=== PATIENT | male | born 1955 | race African-American/Black ===

== ENCOUNTER 2017-05-29 05:08 | Inpatient (IN) | payer OTHER, MEDICAID ==
[2017-05-29] MEDS: NITROGLYCERIN (SL) 0.4 MG TAB SL ×2 (05:20→22:12)
[2017-05-29] MEDS: FUROSEMIDE 40 MG INJ IV ×2 (05:20→18:30)
[2017-05-29] MEDS: ENALAPRILAT 1.25 MG INJ IV (05:20)
[2017-05-29] MEDS: ASPIRIN 81 MG TAB PO ×2 (05:20→10:39)
[2017-05-29 06:05] LABS: AADO2 Arterial 126.9 mmHg (7.0-24.0); Allen Test ACCEPTAB; Arterial Base Excess 1.7 mmol/L (-3.0-3); Arterial Blood Gas Oxygen Sat 99.4 mmHG (95.0-98.0); Arterial COHb 2.3 % (0.0-3.0); Arterial Fraction of Oxyhgb 96.8 % (93.0-99.0); Arterial HCO3 27.9 mmol/L (22.0-26.0); Arterial MetHb 0.3 % (0.0-1.5); Arterial Total Hemglobin 10.9 g/dl (12.0-18.0); Arterial pCO2 51.5 mmhg (35-45); Blood Gas IEPAP 15/5; MODE MASK - BIPAP; Site Right Radial
[2017-05-29 06:18] LABS: ADD MAN DIFF? NO
[2017-05-29 06:28] LABS: INR 1.19; PROTIME 15.3 Sec (11.9-14.9); PT RATIO 1.2
[2017-05-29 06:35] LABS: WHITE BLOOD COUNT 7.9 10^3/ul (4.8-10.8)
[2017-05-29 06:35] LABS: BASOPHILS % 0.4 % (0.0-2.0); EOSINOPHILS # 0.2 10^3/ul (0.0-0.5); EOSINOPHILS % 2.3 % (0.0-7.0); HEMATOCRIT 34.7 % (42.0-52.0); HEMOGLOBIN 10.8 g/dl (14.0-18.0); LYMPHOCYTES # 1.7 10^3/ul (0.8-2.9); LYMPHOCYTES % 21.1 % (15.0-51.0); MEAN CORPUSCULAR HEMOGLOBIN 28.8 pg (29.0-33.0); MEAN CORPUSCULAR HGB CONC 31.1 g/dl (32.0-37.0); MEAN CORPUSCULAR VOLUME 92.5 fl (82.0-101.0); MONOCYTE # 0.7 10^3/ul (0.3-0.9); MONOCYTES % 9.1 % (0.0-11.0); NEUTROPHIL # 5.3 10^3/ul (1.6-7.5); NEUTROPHILS % 66.8 % (39.0-77.0); PLATELET COUNT 211 10^3/UL (140-415); RED BLOOD COUNT 3.75 10^6/ul (4.70-6.10); RED CELL DISTRIBUTION WIDTH 15.4 % (11.5-14.5)
[2017-05-29 07:00] LABS: ALANINE AMINOTRANSFERASE 88 IU/L (13-69); ALBUMIN/GLOBULIN RATIO 1.29; ALKALINE PHOSPHATASE 92 IU/L (42-121); ANION GAP 16 (8-16); ASPARTATE AMINO TRANSFERASE 60 IU/L (15-46); BILIRUBIN,INDIRECT 0.7 mg/dl (0-1.1); BILIRUBIN,TOTAL 0.7 mg/dl (0.2-1.3); BLOOD UREA NITROGEN 15 mg/dl (7-20); CALCIUM 8.5 mg/dl (8.4-10.2); CARBON DIOXIDE 29 mmol/L (21-31); CHLORIDE 105 mmol/L (97-110); CREATININE 2.04 mg/dl (0.61-1.24); GLUCOSE 135 mg/dl (70-220); LIPASE 97 U/L (23-300); POTASSIUM 3.6 mmol/L (3.5-5.1); SODIUM 146 mmol/L (135-144); TOTAL PROTEIN 7.1 g/dl (6.1-8.1)
[2017-05-29 07:14] LABS: TROPONIN-I 0.146 ng/ml (0.00-0.12)
[2017-05-29] MEDS ORDERED: ONDANSETRON 4 MG INJ IV (09:00)
[2017-05-29] MEDS ORDERED: ACETAMINOPHEN 325 MG TAB PO (09:00)
[2017-05-29 13:31] LABS: CREATINE KINASE 160 IU/L (23-200)
[2017-05-29 13:44] LABS: CK INDEX 1.5; TROPONIN-I 0.094 ng/ml (0.00-0.12)
[2017-05-29 13:46] LABS: CK-MB 2.47 ng/ml (0.0-2.4)
[2017-05-29] MEDS ORDERED: MECLIZINE 25 MG TAB PO (16:30)
[2017-05-29] MEDS ORDERED: METOPROLOL 5 MG INJ IV (16:30)
[2017-05-29] MEDS: AL HYDROX/MG HYDROX/SIMETH 30 ML CUP PO ×2 (17:00→21:06)
[2017-05-29 17:24] LABS: ADD MAN DIFF? NO
[2017-05-29 17:32] LABS: WHITE BLOOD COUNT 6.1 10^3/ul (4.8-10.8)
[2017-05-29 17:32] LABS: BASOPHILS % 0.3 % (0.0-2.0); EOSINOPHILS # 0.1 10^3/ul (0.0-0.5); EOSINOPHILS % 2.3 % (0.0-7.0); HEMATOCRIT 30.2 % (42.0-52.0); HEMOGLOBIN 9.7 g/dl (14.0-18.0); LYMPHOCYTES # 1.1 10^3/ul (0.8-2.9); LYMPHOCYTES % 18.3 % (15.0-51.0); MEAN CORPUSCULAR HEMOGLOBIN 29.5 pg (29.0-33.0); MEAN CORPUSCULAR HGB CONC 32.1 g/dl (32.0-37.0); MEAN CORPUSCULAR VOLUME 91.8 fl (82.0-101.0); MEAN PLATELET VOLUME 11.9 fl (7.4-10.4); MONOCYTE # 0.6 10^3/ul (0.3-0.9); MONOCYTES % 10.2 % (0.0-11.0); NEUTROPHIL # 4.2 10^3/ul (1.6-7.5); NEUTROPHILS % 68.7 % (39.0-77.0); PLATELET COUNT 186 10^3/UL (140-415); RED BLOOD COUNT 3.29 10^6/ul (4.70-6.10); RED CELL DISTRIBUTION WIDTH 15.5 % (11.5-14.5)
[2017-05-29 17:53] LABS: INR 1.15; PROTIME 14.9 Sec (11.9-14.9); PT RATIO 1.2
[2017-05-29 17:54] LABS: PARTIAL THROMBOPLASTIN TIME 33.4 Sec (25.0-35.0)
[2017-05-29 17:57] LABS: CREATINE KINASE 143 IU/L (23-200)
[2017-05-29] MEDS: GLIMEPIRIDE 2 MG TAB PO (18:05)
[2017-05-29 18:11] LABS: CK INDEX 1.6; TROPONIN-I 0.091 ng/ml (0.00-0.12)
[2017-05-29 18:14] LABS: CK-MB 2.29 ng/ml (0.0-2.4)
[2017-05-29] MEDS ORDERED: GLUCOSE GEL 15 GRAM TUBE BUCCAL (19:00)
[2017-05-29] MEDS ORDERED: GLUCAGON 1 MG INJ IM (19:00)
[2017-05-29] MEDS ORDERED: GLUCOSE GEL 15 GRAM TUBE PO ×2 (19:00)
[2017-05-29] MEDS ORDERED: DEXTROSE 50% 50 ML SYRINGE IV ×2 (19:00)
[2017-05-29] MEDS: morphine 2 MG INJ IV (20:08)
[2017-05-29] MEDS: LATANOPROST 0.005% 2.5 ML OPH BOTH EYES (21:00)
[2017-05-29] MEDS: traZODone 50 MG TAB PO (21:00)
[2017-05-29] MEDS ORDERED: ENOXAPARIN 100 MG/ML SYG SC (21:00)
[2017-05-29] MEDS ORDERED: ATORVASTATIN 10 MG TAB PO (21:00)
[2017-05-29] MEDS: INSULIN ASPART [NOVOLOG] 3 ML PEN SC (21:00)
[2017-05-29] MEDS: TAMSULOSIN (SR) 0.4 MG CAP PO (21:05)
[2017-05-29] MEDS: GABAPENTIN 300 MG CAP PO (21:05)
[2017-05-29] MEDS: ATORVASTATIN 40 MG TAB PO (21:06)
[2017-05-29 21:28] LABS: CREATINE KINASE 165 IU/L (23-200)
[2017-05-29] MEDS: ALBUTEROL 0.083% (NEB) 2.5 MG/3 ML AMP HHN (21:30)
[2017-05-29] MEDS: IPRATROPIUM (NEB) 0.5 MG/2.5 ML AMP HHN (21:30)
[2017-05-29 21:42] LABS: CK INDEX 1.4; CK-MB 2.31 ng/ml (0.0-2.4); TROPONIN-I 0.077 ng/ml (0.00-0.12)
[2017-05-29] MEDS: HEPARIN 5,000 UNIT/0.5 ML VIAL SC (22:07)
[2017-05-29] MEDS: DOXAZOSIN 4 MG TAB PO (23:58)
[2017-05-30 01:10] LABS: CREATINE KINASE 132 IU/L (23-200)
[2017-05-30 01:23] LABS: CK INDEX 1.6; TROPONIN-I 0.082 ng/ml (0.00-0.12)
[2017-05-30 01:25] LABS: CK-MB 2.15 ng/ml (0.0-2.4)
[2017-05-30] MEDS: ACCU-CHEK XX (02:00)
[2017-05-30] MEDS: IPRATROPIUM (NEB) 0.5 MG/2.5 ML AMP HHN ×4 (02:03→21:45)
[2017-05-30] MEDS: ALBUTEROL 0.083% (NEB) 2.5 MG/3 ML AMP HHN ×4 (02:04→21:45)
[2017-05-30] MEDS: FUROSEMIDE 40 MG INJ IV ×2 (05:51→17:32)
[2017-05-30] MEDS: INSULIN ASPART [NOVOLOG] 3 ML PEN SC ×4 (08:00→21:00)
[2017-05-30] MEDS: PAROXETINE 20 MG TAB PO (08:31)
[2017-05-30] MEDS: LORAZEPAM 1 MG TAB PO ×2 (08:31→18:46)
[2017-05-30] MEDS: LORATADINE 10 MG TAB PO (08:31)
[2017-05-30] MEDS: GABAPENTIN 300 MG CAP PO ×2 (08:31→21:05)
[2017-05-30] MEDS: AL HYDROX/MG HYDROX/SIMETH 30 ML CUP PO ×4 (08:31→21:05)
[2017-05-30] MEDS: ASPIRIN (EC) 81 MG TAB PO (08:31)
[2017-05-30] MEDS: BENAZEPRIL 10 MG TAB PO (08:32)
[2017-05-30] MEDS: HEPARIN 5,000 UNIT/0.5 ML VIAL SC ×2 (08:33→21:09)
[2017-05-30] MEDS ORDERED: FUROSEMIDE 20 MG TAB PO (09:00)
[2017-05-30] MEDS ORDERED: ASPIRIN 325 MG TAB PO (09:00)
[2017-05-30 09:22] LABS: CREATINE KINASE 130 IU/L (23-200)
[2017-05-30 09:35] LABS: CK INDEX 1.5; TROPONIN-I 0.068 ng/ml (0.00-0.12)
[2017-05-30 09:39] LABS: CK-MB 1.96 ng/ml (0.0-2.4)
[2017-05-30] MEDS: FLUTICASONE 0.05% 16 GM NAS SPRAY NASAL (10:11)
[2017-05-30] MEDS: ALBUTEROL/IPRATROPIUM (NEB) 3 ML AMP HHN (12:54)
[2017-05-30 14:16] LABS: ADD UMIC NO; UR ASCORBIC ACID NEGATIVE (NEGATIVE); UR BILIRUBIN (Dip) NEGATIVE (NEGATIVE); UR BLOOD (Dip) NEGATIVE (NEGATIVE); UR CLARITY CLEAR (CLEAR); UR COLOR YELLOW (YELLOW); UR GLUCOSE (Dip) NEGATIVE (NEGATIVE); UR KETONES (Dip) NEGATIVE (NEGATIVE); UR LEUKOCYTE ESTERASE (Dip) NEGATIVE Leu/ul (NEGATIVE); UR NITRITE (Dip) NEGATIVE (NEGATIVE); UR SPECIFIC GRAVITY (Dip) 1.008 (1.003-1.030); UR TOTAL PROTEIN (Dip) NEGATIVE (NEGATIVE); UR UROBILINOGEN (Dip) NEGATIVE (NEGATIVE)
[2017-05-30 14:39] LABS: CREATININE,URINE RANDOM 70.91 mg/dl (20-370)
[2017-05-30 14:46] LABS: SODIUM,URINE RANDOM 73 mmol/L (30-90)
[2017-05-30 15:26] LABS: CHOLESTEROL 113 mg/dl (100-200)
[2017-05-30 15:26] LABS: CHOL/HDL RATIO 3.5 RATIO; HDL CHOLESTEROL 32 mg/dl (30-78); LDL CHOLESTEROL,CALCULATED 63 mg/dl; TRIGLYCERIDES 92 mg/dl (0-149)
[2017-05-30 15:38] LABS: B-TYPE NATRIURETIC PEPTIDE 2350 PG/ML (0-125); TROPONIN-I 0.047 ng/ml (0.00-0.12)
[2017-05-30] MEDS: ATORVASTATIN 40 MG TAB PO (21:05)
[2017-05-30] MEDS: traZODone 50 MG TAB PO (21:07)
[2017-05-30] MEDS: TAMSULOSIN (SR) 0.4 MG CAP PO (21:07)
[2017-05-30] MEDS: DOXAZOSIN 4 MG TAB PO (21:08)
[2017-05-30] MEDS: LATANOPROST 0.005% 2.5 ML OPH BOTH EYES (21:08)
[2017-05-31] MEDS: ACCU-CHEK XX (02:00)
[2017-05-31] MEDS: IPRATROPIUM (NEB) 0.5 MG/2.5 ML AMP HHN ×4 (02:12→19:44)
[2017-05-31] MEDS: ALBUTEROL 0.083% (NEB) 2.5 MG/3 ML AMP HHN ×4 (02:12→19:44)
[2017-05-31] MEDS: FUROSEMIDE 40 MG INJ IV ×2 (05:32→17:28)
[2017-05-31 08:19] LABS: ADD MAN DIFF? NO
[2017-05-31 08:24] LABS: BASOPHILS % 0.3 % (0.0-2.0); EOSINOPHILS # 0.1 10^3/ul (0.0-0.5); HEMATOCRIT 34.3 % (42.0-52.0); HEMOGLOBIN 11.1 g/dl (14.0-18.0); LYMPHOCYTES # 0.9 10^3/ul (0.8-2.9); LYMPHOCYTES % 15.7 % (15.0-51.0); MEAN CORPUSCULAR HEMOGLOBIN 29.3 pg (29.0-33.0); MEAN CORPUSCULAR HGB CONC 32.4 g/dl (32.0-37.0); MEAN CORPUSCULAR VOLUME 90.5 fl (82.0-101.0); MEAN PLATELET VOLUME 12.2 fl (7.4-10.4); MONOCYTE # 0.6 10^3/ul (0.3-0.9); MONOCYTES % 9.6 % (0.0-11.0); NEUTROPHIL # 4.3 10^3/ul (1.6-7.5); NEUTROPHILS % 72.2 % (39.0-77.0); PLATELET COUNT 202 10^3/UL (140-415); RED BLOOD COUNT 3.79 10^6/ul (4.70-6.10); RED CELL DISTRIBUTION WIDTH 15.3 % (11.5-14.5)
[2017-05-31 08:24] LABS: WHITE BLOOD COUNT 5.9 10^3/ul (4.8-10.8)
[2017-05-31 08:59] LABS: MAGNESIUM 1.9 mg/dl (1.7-2.5)
[2017-05-31 08:59] LABS: PHOSPHORUS 2.9 mg/dl (2.5-4.9)
[2017-05-31] MEDS: ASPIRIN (EC) 81 MG TAB PO (09:00)
[2017-05-31] MEDS: PAROXETINE 20 MG TAB PO (09:02)
[2017-05-31] MEDS: ASPIRIN 81 MG TAB PO (09:02)
[2017-05-31] MEDS: AL HYDROX/MG HYDROX/SIMETH 30 ML CUP PO ×4 (09:03→21:07)
[2017-05-31 09:06] LABS: ANION GAP 13 (8-16); BLOOD UREA NITROGEN 20 mg/dl (7-20); CALCIUM 8.9 mg/dl (8.4-10.2); CARBON DIOXIDE 33 mmol/L (21-31); CHLORIDE 102 mmol/L (97-110); GLUCOSE 135 mg/dl (70-220); POTASSIUM 3.3 mmol/L (3.5-5.1); SODIUM 145 mmol/L (135-144)
[2017-05-31] MEDS: INSULIN ASPART [NOVOLOG] 3 ML PEN SC ×4 (09:11→20:33)
[2017-05-31] MEDS: HEPARIN 5,000 UNIT/0.5 ML VIAL SC ×2 (09:12→20:33)
[2017-05-31] MEDS: ALBUTEROL HFA 8 GM INHALER INH ×2 (09:16→09:18)
[2017-05-31] MEDS: FLUTICASONE 0.05% 16 GM NAS SPRAY NASAL (09:19)
[2017-05-31] MEDS: POTASSIUM CHLORIDE (SR) 20 MEQ TAB PO (12:23)
[2017-05-31] MEDS: LORAZEPAM 1 MG TAB PO (15:35)
[2017-05-31] MEDS: traZODone 50 MG TAB PO (20:31)
[2017-05-31] MEDS: TAMSULOSIN (SR) 0.4 MG CAP PO (20:31)
[2017-05-31] MEDS: ONDANSETRON 4 MG INJ IV (20:31)
[2017-05-31] MEDS: LATANOPROST 0.005% 2.5 ML OPH BOTH EYES (20:31)
[2017-05-31] MEDS: ATORVASTATIN 40 MG TAB PO (20:31)
[2017-05-31] MEDS: DOXAZOSIN 4 MG TAB PO (20:32)
[2017-06-01] MEDS: IPRATROPIUM (NEB) 0.5 MG/2.5 ML AMP HHN ×4 (00:54→19:55)
[2017-06-01] MEDS: ALBUTEROL 0.083% (NEB) 2.5 MG/3 ML AMP HHN ×4 (00:54→19:55)
[2017-06-01] MEDS: LORAZEPAM 1 MG TAB PO ×3 (01:28→20:12)
[2017-06-01] MEDS: ACCU-CHEK XX (02:00)
[2017-06-01] MEDS: FUROSEMIDE 40 MG INJ IV (05:18)
[2017-06-01] MEDS: INSULIN ASPART [NOVOLOG] 3 ML PEN SC ×4 (08:00→20:16)
[2017-06-01 08:34] LABS: ADD MAN DIFF? NO; BASOPHILS % 0.2 % (0.0-2.0); EOSINOPHILS # 0.1 10^3/ul (0.0-0.5); EOSINOPHILS % 2.2 % (0.0-7.0); HEMOGLOBIN 10.9 g/dl (14.0-18.0); LYMPHOCYTES # 0.8 10^3/ul (0.8-2.9); LYMPHOCYTES % 15.9 % (15.0-51.0); MEAN CORPUSCULAR HEMOGLOBIN 29.8 pg (29.0-33.0); MEAN CORPUSCULAR VOLUME 90.2 fl (82.0-101.0); MEAN PLATELET VOLUME 12.4 fl (7.4-10.4); MONOCYTE # 0.5 10^3/ul (0.3-0.9); MONOCYTES % 10.7 % (0.0-11.0); NEUTROPHIL # 3.5 10^3/ul (1.6-7.5); NEUTROPHILS % 70.8 % (39.0-77.0); PLATELET COUNT 225 10^3/UL (140-415); RED BLOOD COUNT 3.66 10^6/ul (4.70-6.10); RED CELL DISTRIBUTION WIDTH 15.5 % (11.5-14.5)
[2017-06-01] MEDS: HEPARIN 5,000 UNIT/0.5 ML VIAL SC ×2 (08:35→20:22)
[2017-06-01] MEDS: ASPIRIN (EC) 81 MG TAB PO (08:36)
[2017-06-01] MEDS: PAROXETINE 20 MG TAB PO (08:36)
[2017-06-01] MEDS: METOPROLOL (XL) 50 MG TAB PO (08:37)
[2017-06-01] MEDS: ALBUTEROL HFA 8 GM INHALER INH (08:38)
[2017-06-01] MEDS: ASPIRIN 81 MG TAB PO (09:00)
[2017-06-01] MEDS: AL HYDROX/MG HYDROX/SIMETH 30 ML CUP PO ×4 (09:00→20:14)
[2017-06-01] MEDS: FLUTICASONE 0.05% 16 GM NAS SPRAY NASAL (09:00)
[2017-06-01 09:02] LABS: ANION GAP 15 (8-16); BLOOD UREA NITROGEN 18 mg/dl (7-20); CALCIUM 8.3 mg/dl (8.4-10.2); CARBON DIOXIDE 32 mmol/L (21-31); CHLORIDE 100 mmol/L (97-110); CREATININE 1.53 mg/dl (0.61-1.24); GLUCOSE 116 mg/dl (70-220); POTASSIUM 3.9 mmol/L (3.5-5.1); SODIUM 143 mmol/L (135-144)
[2017-06-01 09:10] LABS: PHOSPHORUS 3.7 mg/dl (2.5-4.9)
[2017-06-01 09:10] LABS: MAGNESIUM 1.9 mg/dl (1.7-2.5)
[2017-06-01] MEDS: LORAZEPAM 2 MG INJ IV (16:56)
[2017-06-01] MEDS: traZODone 50 MG TAB PO (20:12)
[2017-06-01] MEDS: TAMSULOSIN (SR) 0.4 MG CAP PO (20:12)
[2017-06-01] MEDS: ATORVASTATIN 40 MG TAB PO (20:12)
[2017-06-01] MEDS: LATANOPROST 0.005% 2.5 ML OPH BOTH EYES (20:15)
[2017-06-01] MEDS: DOXAZOSIN 4 MG TAB PO (20:15)
[2017-06-02] MEDS: ACCU-CHEK XX (01:05)
[2017-06-02] MEDS: IPRATROPIUM (NEB) 0.5 MG/2.5 ML AMP HHN ×3 (01:18→14:00)
[2017-06-02] MEDS: ALBUTEROL 0.083% (NEB) 2.5 MG/3 ML AMP HHN ×3 (01:18→14:00)
[2017-06-02] MEDS: morphine 2 MG INJ IV (04:53)
[2017-06-02] MEDS: LORAZEPAM 1 MG TAB PO (04:53)
[2017-06-02] MEDS: ONDANSETRON 4 MG INJ IV (04:53)
[2017-06-02] MEDS: INSULIN ASPART [NOVOLOG] 3 ML PEN SC ×3 (08:00→17:25)
[2017-06-02] MEDS: ASPIRIN 81 MG TAB PO (08:44)
[2017-06-02] MEDS: FUROSEMIDE 40 MG INJ IV (08:45)
[2017-06-02] MEDS: METOPROLOL (XL) 50 MG TAB PO (08:45)
[2017-06-02] MEDS: PAROXETINE 20 MG TAB PO (08:46)
[2017-06-02] MEDS: AL HYDROX/MG HYDROX/SIMETH 30 ML CUP PO ×3 (08:46→17:21)
[2017-06-02] MEDS: HEPARIN 5,000 UNIT/0.5 ML VIAL SC (08:49)
[2017-06-02] MEDS: FLUTICASONE 0.05% 16 GM NAS SPRAY NASAL (08:53)
[2017-06-02] MEDS: REGADENOSON 0.4 MG/5 ML SYG (11:50)
== END 2017-06-02 19:01 | disposition home health service (06) | DRG 280 ==
LOC: E/R 05:08 → MS4 09:56
PROC: 5A09457 Assistance with Respiratory Ventilation, 24-96 Consecutive Hours, Continuous Positive Airway Pressure (ICD-10-PCS; principal; 2017-05-29)
DX: I13.0 Hypertensive heart and chronic kidney disease with heart failure and stage 1 through stage 4 chronic kidney disease, or unspecified chronic kidney disease (principal); I21.4 Non-ST elevation (NSTEMI) myocardial infarction; I50.33 Acute on chronic diastolic (congestive) heart failure; J96.90 Respiratory failure, unspecified, unspecified whether with hypoxia or hypercapnia; E87.0 Hyperosmolality and hypernatremia; N17.9 Acute kidney failure, unspecified; E11.39 Type 2 diabetes mellitus with other diabetic ophthalmic complication; D64.9 Anemia, unspecified; F32.9 Major depressive disorder, single episode, unspecified; E78.5 Hyperlipidemia, unspecified; H40.9 Unspecified glaucoma; N40.0 Benign prostatic hyperplasia without lower urinary tract symptoms; F41.9 Anxiety disorder, unspecified; E66.9 Obesity, unspecified; Z68.33 Body mass index [BMI] 33.0-33.9, adult; Z72.0 Tobacco use; E11.40 Type 2 diabetes mellitus with diabetic neuropathy, unspecified; E11.22 Type 2 diabetes mellitus with diabetic chronic kidney disease; N18.9 Chronic kidney disease, unspecified
CPT/HCPCS: 36415; 36600; 71010; 76775; 78452; 80048; 80053; 80061; 81003; 82550; 82553; 82803; 82962; 83690; 83735; 83880; 84100; 84155; 84300; 84484; 85025; 85610; 85730; 87400; 89190; 93005; 93017; 93306; 94640; 94660; 94664; 96374; 96375; 99291-25

== ENCOUNTER 2017-06-05 23:05 | Inpatient (IN) | payer OTHER ==
[2017-06-05] MEDS: ALBUTEROL 0.5% (NEB) 2.5 MG/0.5 ML AMP INH (23:22)
[2017-06-05] MEDS: IPRATROPIUM (NEB) 0.5 MG/2.5 ML AMP INH (23:22)
[2017-06-05] MEDS: NITROGLYCERIN 2% 1 GM OINT PKT TD (23:25)
[2017-06-05] MEDS: METHYLPREDNISOLONE 125 MG INJ IV (23:25)
[2017-06-05] MEDS: FUROSEMIDE 40 MG INJ IV (23:25)
[2017-06-05 23:34] LABS: ADD MAN DIFF? NO
[2017-06-05 23:38] LABS: BASOPHILS % 0.7 % (0.0-2.0); EOSINOPHILS # 0.2 10^3/ul (0.0-0.5); EOSINOPHILS % 3.9 % (0.0-7.0); HEMATOCRIT 34.4 % (42.0-52.0); HEMOGLOBIN 10.9 g/dl (14.0-18.0); LYMPHOCYTES # 1.9 10^3/ul (0.8-2.9); LYMPHOCYTES % 32.1 % (15.0-51.0); MEAN CORPUSCULAR HEMOGLOBIN 28.9 pg (29.0-33.0); MEAN CORPUSCULAR HGB CONC 31.7 g/dl (32.0-37.0); MEAN CORPUSCULAR VOLUME 91.2 fl (82.0-101.0); MEAN PLATELET VOLUME 11.8 fl (7.4-10.4); MONOCYTE # 0.7 10^3/ul (0.3-0.9); MONOCYTES % 11.8 % (0.0-11.0); NEUTROPHILS % 51.3 % (39.0-77.0); PLATELET COUNT 270 10^3/UL (140-415); RED BLOOD COUNT 3.77 10^6/ul (4.70-6.10); RED CELL DISTRIBUTION WIDTH 15.2 % (11.5-14.5)
[2017-06-05 23:38] LABS: WHITE BLOOD COUNT 5.9 10^3/ul (4.8-10.8)
[2017-06-05 23:57] LABS: ALANINE AMINOTRANSFERASE 52 IU/L (13-69); ALBUMIN 4.1 g/dl (3.3-4.9); ALKALINE PHOSPHATASE 77 IU/L (42-121); ANION GAP 15 (8-16); ASPARTATE AMINO TRANSFERASE 48 IU/L (15-46); BILIRUBIN,INDIRECT 0.4 mg/dl (0-1.1); BILIRUBIN,TOTAL 0.4 mg/dl (0.2-1.3); BLOOD UREA NITROGEN 24 mg/dl (7-20); CALCIUM 8.8 mg/dl (8.4-10.2); CARBON DIOXIDE 30 mmol/L (21-31); CHLORIDE 104 mmol/L (97-110); CREATININE 1.59 mg/dl (0.61-1.24); GLUCOSE 122 mg/dl (70-220); INR 1.04; POTASSIUM 3.5 mmol/L (3.5-5.1); PROTIME 13.7 Sec (11.9-14.9); PT RATIO 1.1; SODIUM 145 mmol/L (135-144); TOTAL PROTEIN 7.8 g/dl (6.1-8.1)
[2017-06-05 23:58] LABS: PARTIAL THROMBOPLASTIN TIME 28.8 Sec (25.0-35.0)
[2017-06-06 00:08] LABS: B-TYPE NATRIURETIC PEPTIDE 1510 PG/ML (0-125); TROPONIN-I 0.035 ng/ml (0.00-0.12)
[2017-06-06 01:21] LABS: AADO2 Arterial 509.2 mmHg (7.0-24.0); Allen Test ACCEPTAB; Arterial Base Excess 2.8 mmol/L (-3.0-3); Arterial Blood Gas Oxygen Sat 98.5 mmHG (95.0-98.0); Arterial COHb 0.1 % (0.0-3.0); Arterial Fraction of Oxyhgb 98.1 % (93.0-99.0); Arterial HCO3 29.5 mmol/L (22.0-26.0); Arterial MetHb 0.3 % (0.0-1.5); Arterial Total Hemglobin 11.1 g/dl (12.0-18.0); Arterial pCO2 55.6 mmhg (35-45); Blood Gas IEPAP 18/5; Blood Gas PS 13; MODE MASK - BIPAP; Site Right Radial
[2017-06-06] MEDS ORDERED: ONDANSETRON 4 MG INJ IV (11:00)
[2017-06-06] MEDS ORDERED: ACETAMINOPHEN 325 MG TAB PO (11:00)
[2017-06-06] MEDS ORDERED: MAGNESIUM HYDROXIDE 30ML CUP PO (11:00)
[2017-06-06] MEDS ORDERED: NACL 0.9% 3 ML SYG IV (11:00)
[2017-06-06] MEDS: METHYLPREDNISOLONE 40 MG INJ IV ×2 (14:35→21:54)
[2017-06-06] MEDS: hydrALAzine 20 MG INJ IV (14:36)
[2017-06-06] MEDS: HEPARIN 5,000 UNIT/0.5 ML VIAL SC ×2 (14:43→22:05)
[2017-06-06] MEDS: METOPROLOL (XL) 50 MG TAB PO (18:10)
[2017-06-06] MEDS: FUROSEMIDE 40 MG INJ IV (18:11)
[2017-06-06] MEDS ORDERED: AMLODIPINE 5 MG TAB PO (21:00)
[2017-06-06] MEDS: INSULIN ASPART [NOVOLOG] 3 ML PEN SC ×2 (21:00→22:01)
[2017-06-06] MEDS ORDERED: ALBUTEROL/IPRATROPIUM (NEB) 3 ML AMP HHN (21:00)
[2017-06-06] MEDS: ALBUTEROL/IPRATROPIUM (NEB) 3 ML AMP HHN (21:14)
[2017-06-06] MEDS ORDERED: GLUCOSE GEL 15 GRAM TUBE PO ×2 (21:30)
[2017-06-06] MEDS ORDERED: GLUCAGON 1 MG INJ IM (21:30)
[2017-06-06] MEDS ORDERED: GLUCOSE GEL 15 GRAM TUBE BUCCAL (21:30)
[2017-06-06] MEDS ORDERED: DEXTROSE 50% 50 ML SYRINGE IV ×2 (21:30)
[2017-06-06] MEDS: GABAPENTIN 300 MG CAP PO (21:54)
[2017-06-06] MEDS: FAMOTIDINE 20 MG INJ IV (21:54)
[2017-06-06] MEDS: ATORVASTATIN 10 MG TAB PO (21:54)
[2017-06-06] MEDS: traZODone 50 MG TAB PO (21:55)
[2017-06-06] MEDS: DOCUSATE SODIUM 100 MG CAP PO (22:02)
[2017-06-07 01:08] LABS: CREATINE KINASE 89 IU/L (23-200)
[2017-06-07] MEDS: ALBUTEROL/IPRATROPIUM (NEB) 3 ML AMP HHN ×6 (01:16→20:14)
[2017-06-07 01:22] LABS: CK INDEX 1.9; TROPONIN-I 0.033 ng/ml (0.00-0.12)
[2017-06-07] MEDS: ACCU-CHEK XX (02:19)
[2017-06-07] MEDS: METHYLPREDNISOLONE 40 MG INJ IV ×3 (05:54→22:23)
[2017-06-07] MEDS: FUROSEMIDE 40 MG INJ IV ×2 (05:55→18:22)
[2017-06-07] MEDS: HEPARIN 5,000 UNIT/0.5 ML VIAL SC ×3 (06:02→22:34)
[2017-06-07 07:39] LABS: ADD MAN DIFF? NO
[2017-06-07 07:45] LABS: ABNORMAL IP MESSAGE 1; HEMATOCRIT 31.9 % (42.0-52.0); HEMOGLOBIN 10.4 g/dl (14.0-18.0); LYMPHOCYTES # 0.6 10^3/ul (0.8-2.9); LYMPHOCYTES % 8.3 % (15.0-51.0); MEAN CORPUSCULAR HEMOGLOBIN 29.1 pg (29.0-33.0); MEAN CORPUSCULAR HGB CONC 32.6 g/dl (32.0-37.0); MEAN CORPUSCULAR VOLUME 89.1 fl (82.0-101.0); MEAN PLATELET VOLUME 12.3 fl (7.4-10.4); MONOCYTE # 0.4 10^3/ul (0.3-0.9); MONOCYTES % 6.3 % (0.0-11.0); NEUTROPHIL # 5.9 10^3/ul (1.6-7.5); PLATELET COUNT 259 10^3/UL (140-415); POSITIVE DIFF @See below; RED BLOOD COUNT 3.58 10^6/ul (4.70-6.10); RED CELL DISTRIBUTION WIDTH 15.5 % (11.5-14.5)
[2017-06-07 08:10] LABS: ANION GAP 14 (8-16); BLOOD UREA NITROGEN 38 mg/dl (7-20); CALCIUM 8.7 mg/dl (8.4-10.2); CARBON DIOXIDE 29 mmol/L (21-31); CHLORIDE 103 mmol/L (97-110); CREATININE 1.48 mg/dl (0.61-1.24); GLUCOSE 188 mg/dl (70-220); POTASSIUM 4.1 mmol/L (3.5-5.1); SODIUM 142 mmol/L (135-144)
[2017-06-07 08:11] LABS: CREATINE KINASE 75 IU/L (23-200)
[2017-06-07 08:21] LABS: CK INDEX 1.9; TROPONIN-I 0.026 ng/ml (0.00-0.12)
[2017-06-07 08:28] LABS: CK-MB 1.43 ng/ml (0.0-2.4)
[2017-06-07] MEDS: METOPROLOL (XL) 50 MG TAB PO (08:30)
[2017-06-07] MEDS: ASPIRIN 81 MG TAB PO (08:30)
[2017-06-07] MEDS: GABAPENTIN 300 MG CAP PO ×3 (08:30→20:40)
[2017-06-07] MEDS: FAMOTIDINE 20 MG INJ IV ×2 (08:30→20:41)
[2017-06-07] MEDS: INSULIN ASPART [NOVOLOG] 3 ML PEN SC ×4 (08:39→20:44)
[2017-06-07] MEDS: LATANOPROST 0.005% 2.5 ML OPH BOTH EYES ×2 (10:47→20:40)
[2017-06-07 11:22] LABS: PHOSPHORUS 4.2 mg/dl (2.5-4.9)
[2017-06-07] MEDS: DOCUSATE SODIUM 100 MG CAP PO (18:26)
[2017-06-07] MEDS: ATORVASTATIN 10 MG TAB PO (20:40)
[2017-06-07] MEDS: traZODone 50 MG TAB PO (20:41)
[2017-06-08] MEDS: ALBUTEROL/IPRATROPIUM (NEB) 3 ML AMP HHN ×6 (00:56→21:57)
[2017-06-08] MEDS: ACCU-CHEK XX (02:34)
[2017-06-08] MEDS: FUROSEMIDE 40 MG INJ IV ×2 (05:45→17:24)
[2017-06-08] MEDS: METHYLPREDNISOLONE 40 MG INJ IV ×3 (05:45→20:47)
[2017-06-08] MEDS: HEPARIN 5,000 UNIT/0.5 ML VIAL SC ×3 (05:54→22:45)
[2017-06-08] MEDS: INSULIN ASPART [NOVOLOG] 3 ML PEN SC ×4 (07:30→20:57)
[2017-06-08] MEDS: HYDROCODONE/APAP (5/325) TAB PO ×2 (07:32→15:33)
[2017-06-08] MEDS: hydrALAzine 20 MG INJ IV ×2 (07:43→15:25)
[2017-06-08 07:47] LABS: ALANINE AMINOTRANSFERASE 46 IU/L (13-69); ALBUMIN/GLOBULIN RATIO 1.11; ALKALINE PHOSPHATASE 82 IU/L (42-121); ANION GAP 13 (8-16); ASPARTATE AMINO TRANSFERASE 20 IU/L (15-46); BILIRUBIN,INDIRECT 0.2 mg/dl (0-1.1); BILIRUBIN,TOTAL 0.2 mg/dl (0.2-1.3); BLOOD UREA NITROGEN 33 mg/dl (7-20); CALCIUM 9.4 mg/dl (8.4-10.2); CARBON DIOXIDE 31 mmol/L (21-31); CHLORIDE 98 mmol/L (97-110); GLUCOSE 258 mg/dl (70-220); POTASSIUM 3.7 mmol/L (3.5-5.1); SODIUM 138 mmol/L (135-144); TOTAL PROTEIN 7.6 g/dl (6.1-8.1)
[2017-06-08] MEDS: ASPIRIN 81 MG TAB PO (08:58)
[2017-06-08] MEDS: GABAPENTIN 300 MG CAP PO ×3 (08:58→20:46)
[2017-06-08] MEDS: FAMOTIDINE 20 MG INJ IV ×2 (08:58→20:47)
[2017-06-08] MEDS: METOPROLOL (XL) 50 MG TAB PO (09:07)
[2017-06-08] MEDS: AL HYDROX/MG HYDROX/SIMETH 30 ML CUP PO (18:20)
[2017-06-08] MEDS: traZODone 50 MG TAB PO (20:46)
[2017-06-08] MEDS: ATORVASTATIN 10 MG TAB PO (20:46)
[2017-06-08] MEDS: INSULIN GLARGINE [LANtus] 3 ML PEN SC (20:57)
[2017-06-08] MEDS: LATANOPROST 0.005% 2.5 ML OPH BOTH EYES (22:40)
[2017-06-09] MEDS: ALBUTEROL/IPRATROPIUM (NEB) 3 ML AMP HHN ×4 (00:40→13:00)
[2017-06-09] MEDS ORDERED: ACCU-CHEK XX (02:00)
[2017-06-09] MEDS: ACCU-CHEK XX (02:14)
[2017-06-09] MEDS: FUROSEMIDE 40 MG INJ IV (05:43)
[2017-06-09] MEDS: HEPARIN 5,000 UNIT/0.5 ML VIAL SC ×2 (05:44→14:00)
[2017-06-09 05:47] LABS: ANION GAP 13 (8-16); BLOOD UREA NITROGEN 38 mg/dl (7-20); CALCIUM 9.2 mg/dl (8.4-10.2); CARBON DIOXIDE 31 mmol/L (21-31); CHLORIDE 100 mmol/L (97-110); CREATININE 1.57 mg/dl (0.61-1.24); GLUCOSE 288 mg/dl (70-220); SODIUM 140 mmol/L (135-144)
[2017-06-09] MEDS: METHYLPREDNISOLONE 40 MG INJ IV (09:13)
[2017-06-09] MEDS: METOPROLOL (XL) 50 MG TAB PO (09:13)
[2017-06-09] MEDS: FAMOTIDINE 20 MG INJ IV (09:13)
[2017-06-09] MEDS: GABAPENTIN 300 MG CAP PO ×2 (09:13→13:12)
[2017-06-09] MEDS: ASPIRIN 81 MG TAB PO (09:13)
[2017-06-09] MEDS: INSULIN ASPART [NOVOLOG] 3 ML PEN SC ×4 (09:36→13:19)
== END 2017-06-09 14:41 | disposition home or self-care (01) | DRG 291 ==
LOC: E/R 23:05 → TEL 06-06 01:21 → MS1 06-08 23:57
DX: I13.0 Hypertensive heart and chronic kidney disease with heart failure and stage 1 through stage 4 chronic kidney disease, or unspecified chronic kidney disease (principal); I50.33 Acute on chronic diastolic (congestive) heart failure; J96.01 Acute respiratory failure with hypoxia; J44.1 Chronic obstructive pulmonary disease with (acute) exacerbation; N17.9 Acute kidney failure, unspecified; E11.22 Type 2 diabetes mellitus with diabetic chronic kidney disease; E11.42 Type 2 diabetes mellitus with diabetic polyneuropathy; E11.65 Type 2 diabetes mellitus with hyperglycemia; F17.210 Nicotine dependence, cigarettes, uncomplicated; N18.9 Chronic kidney disease, unspecified; Z79.4 Long term (current) use of insulin; E78.5 Hyperlipidemia, unspecified; I16.0 Hypertensive urgency; F32.9 Major depressive disorder, single episode, unspecified; N40.0 Benign prostatic hyperplasia without lower urinary tract symptoms
CPT/HCPCS: 36415; 36600; 71045; 80048; 80053; 82550; 82553; 82803; 82962; 83036; 83735; 83880; 84100; 84484; 85025; 85610; 85730; 93005; 94640; 94644; 94660; 94664; 96374; 96375; 99291-25

== ENCOUNTER 2017-11-19 09:40 | Emergency (ER) | payer OTHER, MEDICAID ==
[2017-11-19] MEDS: IPRATROPIUM (NEB) 0.5 MG/2.5 ML AMP NEB (10:20)
[2017-11-19] MEDS: ALBUTEROL 0.083% (NEB) 2.5 MG/3 ML AMP NEB (10:20)
[2017-11-19 11:01] LABS: ADD MAN DIFF? NO
[2017-11-19 11:02] LABS: WHITE BLOOD COUNT 7.2 10^3/ul (4.8-10.8)
[2017-11-19 11:02] LABS: BASOPHILS % 0.4 % (0.0-2.0); EOSINOPHILS # 0.1 10^3/ul (0.0-0.5); EOSINOPHILS % 1.7 % (0.0-7.0); HEMATOCRIT 29.2 % (42.0-52.0); HEMOGLOBIN 9.6 g/dl (14.0-18.0); LYMPHOCYTES # 1.2 10^3/ul (0.8-2.9); LYMPHOCYTES % 16.2 % (15.0-51.0); MEAN CORPUSCULAR HEMOGLOBIN 27.8 pg (29.0-33.0); MEAN CORPUSCULAR HGB CONC 32.9 g/dl (32.0-37.0); MEAN CORPUSCULAR VOLUME 84.6 fl (82.0-101.0); MEAN PLATELET VOLUME 11.6 fl (7.4-10.4); MONOCYTE # 0.5 10^3/ul (0.3-0.9); MONOCYTES % 7.2 % (0.0-11.0); NEUTROPHIL # 5.3 10^3/ul (1.6-7.5); NEUTROPHILS % 74.2 % (39.0-77.0); PLATELET COUNT 261 10^3/UL (140-415); RED BLOOD COUNT 3.45 10^6/ul (4.70-6.10); RED CELL DISTRIBUTION WIDTH 14.5 % (11.5-14.5)
[2017-11-19 11:12] LABS: ADD UMIC NO; UR ASCORBIC ACID NEGATIVE (NEGATIVE); UR BILIRUBIN (Dip) NEGATIVE (NEGATIVE); UR BLOOD (Dip) NEGATIVE (NEGATIVE); UR CLARITY CLEAR (CLEAR); UR COLOR STRAW (YELLOW); UR GLUCOSE (Dip) 3+ mg/dL (NEGATIVE); UR KETONES (Dip) NEGATIVE (NEGATIVE); UR LEUKOCYTE ESTERASE (Dip) NEGATIVE Leu/ul (NEGATIVE); UR NITRITE (Dip) NEGATIVE (NEGATIVE); UR SPECIFIC GRAVITY (Dip) 1.008 (1.003-1.030); UR TOTAL PROTEIN (Dip) NEGATIVE (NEGATIVE); UR UROBILINOGEN (Dip) NEGATIVE (NEGATIVE)
[2017-11-19] MEDS: SOD CHLORIDE 0.9% 500 ML IV (11:17)
[2017-11-19 12:26] LABS: ALANINE AMINOTRANSFERASE 24 IU/L (13-69); ALBUMIN 3.9 g/dl (3.3-4.9); ALBUMIN/GLOBULIN RATIO 1.21; ALKALINE PHOSPHATASE 73 IU/L (42-121); ANION GAP 14 (8-16); ASPARTATE AMINO TRANSFERASE 18 IU/L (15-46); BILIRUBIN,INDIRECT 0.6 mg/dl (0-1.1); BILIRUBIN,TOTAL 0.6 mg/dl (0.2-1.3); BLOOD UREA NITROGEN 18 mg/dl (7-20); CARBON DIOXIDE 32 mmol/L (21-31); CHLORIDE 100 mmol/L (97-110); CREATINE KINASE 121 IU/L (23-200); CREATININE 1.33 mg/dl (0.61-1.24); GLUCOSE 208 mg/dl (70-220); MAGNESIUM 1.9 mg/dl (1.7-2.5); POTASSIUM 3.6 mmol/L (3.5-5.1); SODIUM 142 mmol/L (135-144); TOTAL PROTEIN 7.1 g/dl (6.1-8.1)
[2017-11-19 12:38] LABS: B-TYPE NATRIURETIC PEPTIDE 424 PG/ML (0-125); CK INDEX 1.1; TROPONIN-I 0.029 ng/ml (0.000-0.120)
[2017-11-19 12:40] LABS: CK-MB 1.35 ng/ml (0.0-2.4)
[2017-11-19 14:16] LABS: INR 1.11; PROTIME 14.5 Sec (11.9-14.9); PT RATIO 1.1
[2017-11-19 14:17] LABS: PARTIAL THROMBOPLASTIN TIME 34.9 Sec (25.0-35.0)
== END 2017-11-19 13:38 | disposition home or self-care (01) ==
LOC: E/R 09:40
DX: J44.9 Chronic obstructive pulmonary disease, unspecified (principal); E11.65 Type 2 diabetes mellitus with hyperglycemia; I10 Essential (primary) hypertension; Z79.4 Long term (current) use of insulin; Z79.82 Long term (current) use of aspirin; Z87.891 Personal history of nicotine dependence
CPT/HCPCS: 71045; 80053; 81003; 82550; 82553; 82962; 83735; 83880; 84484; 85025; 85610; 85730; 93005; 94664; 99285-25

== ENCOUNTER 2018-02-02 05:31 | Inpatient (IN) | payer OTHER, MEDICAID ==
[2018-02-02] MEDS: IPRATROPIUM (NEB) 0.5 MG/2.5 ML AMP HHN (05:44)
[2018-02-02] MEDS: ALBUTEROL 0.083% (NEB) 2.5 MG/3 ML AMP HHN (05:46)
[2018-02-02 05:52] LABS: ADD MAN DIFF? NO
[2018-02-02] MEDS: ASPIRIN 325 MG TAB PO (05:53)
[2018-02-02 06:01] LABS: BASOPHILS % 0.5 % (0.0-2.0); EOSINOPHILS # 0.2 10^3/ul (0.0-0.5); EOSINOPHILS % 2.5 % (0.0-7.0); HEMATOCRIT 31.7 % (42.0-52.0); HEMOGLOBIN 10.2 g/dl (14.0-18.0); LYMPHOCYTES % 17.1 % (15.0-51.0); MEAN CORPUSCULAR HEMOGLOBIN 27.9 pg (29.0-33.0); MEAN CORPUSCULAR HGB CONC 32.2 g/dl (32.0-37.0); MEAN CORPUSCULAR VOLUME 86.8 fl (82.0-101.0); MONOCYTE # 0.6 10^3/ul (0.3-0.9); MONOCYTES % 10.1 % (0.0-11.0); NEUTROPHIL # 4.2 10^3/ul (1.6-7.5); NEUTROPHILS % 69.6 % (39.0-77.0); PLATELET COUNT 219 10^3/UL (140-415); RED BLOOD COUNT 3.65 10^6/ul (4.70-6.10); RED CELL DISTRIBUTION WIDTH 14.6 % (11.5-14.5)
[2018-02-02 06:12] LABS: ANION GAP 13 (8-16); BLOOD UREA NITROGEN 18 mg/dl (7-20); CALCIUM 9.5 mg/dl (8.4-10.2); CARBON DIOXIDE 29 mmol/L (21-31); CHLORIDE 107 mmol/L (97-110); CREATININE 1.38 mg/dl (0.61-1.24); GLUCOSE 73 mg/dl (70-220); POTASSIUM 3.4 mmol/L (3.5-5.1); SODIUM 146 mmol/L (135-144)
[2018-02-02] MEDS: FUROSEMIDE 40 MG INJ IV ×2 (06:21→17:23)
[2018-02-02 06:24] LABS: B-TYPE NATRIURETIC PEPTIDE 1380 PG/ML (0-125); TROPONIN-I 0.037 ng/ml (0.000-0.120)
[2018-02-02] MEDS: NITROGLYCERIN 50 MG/D5W (PMX) 250 ML IV (06:36)
[2018-02-02] MEDS ORDERED: ONDANSETRON 4 MG INJ IV (10:00)
[2018-02-02] MEDS ORDERED: MECLIZINE 25 MG TAB PO (10:00)
[2018-02-02] MEDS ORDERED: NACL 0.9% 3 ML SYG IV (10:00)
[2018-02-02] MEDS ORDERED: HYDROCODONE/APAP (5/325) TAB PO (10:00)
[2018-02-02] MEDS ORDERED: ACETAMINOPHEN 325 MG TAB PO (10:00)
[2018-02-02] MEDS: BENAZEPRIL 10 MG TAB PO (10:00)
[2018-02-02] MEDS ORDERED: NITROGLYCERIN (SL) 0.4 MG TAB SL (10:00)
[2018-02-02] MEDS ORDERED: ALBUTEROL/IPRATROPIUM (NEB) 3 ML AMP HHN (10:30)
[2018-02-02] MEDS: AMLODIPINE 5 MG TAB PO ×2 (10:38→21:11)
[2018-02-02] MEDS: METOPROLOL (XL) 50 MG TAB PO (10:39)
[2018-02-02] MEDS: predniSONE 20 MG TAB PO (10:41)
[2018-02-02] MEDS ORDERED: DEXTROSE 50% 50 ML SYRINGE IV ×2 (11:00)
[2018-02-02] MEDS ORDERED: GLUCAGON 1 MG INJ IM (11:00)
[2018-02-02] MEDS ORDERED: GLUCOSE GEL 15 GRAM TUBE PO ×2 (11:00)
[2018-02-02] MEDS ORDERED: GLUCOSE GEL 15 GRAM TUBE BUCCAL (11:00)
[2018-02-02] MEDS: POTASSIUM CHLORIDE (SR) 20 MEQ TAB PO (12:35)
[2018-02-02] MEDS: INSULIN ASPART [NOVOLOG] 3 ML PEN SC ×3 (12:55→21:18)
[2018-02-02 13:19] LABS: CREATINE KINASE 100 IU/L (23-200)
[2018-02-02 13:31] LABS: CK INDEX 1.5; CK-MB 1.46 ng/ml (0.0-2.4); TROPONIN-I 0.021 ng/ml (0.000-0.120)
[2018-02-02] MEDS: MAGNESIUM HYDROXIDE 30ML CUP PO (14:06)
[2018-02-02] MEDS: hydrALAzine 20 MG INJ IV (14:07)
[2018-02-02] MEDS: ALBUTEROL/IPRATROPIUM (NEB) 3 ML AMP HHN ×2 (14:10→19:43)
[2018-02-02 14:47] LABS: AADO2 Arterial 23.3 mmHg (7.0-24.0); Allen Test ACCEPTAB; Arterial Base Excess 2.8 mmol/L (-3.0-3); Arterial Blood Gas Oxygen Sat 95.6 mmHG (95.0-98.0); Arterial COHb 0.5 % (0.0-3.0); Arterial Fraction of Oxyhgb 94.9 % (93.0-99.0); Arterial HCO3 26.7 mmol/L (22.0-26.0); Arterial MetHb 0.2 % (0.0-1.5); Arterial Total Hemglobin 11.7 g/dl (12.0-18.0); Arterial pCO2 38.4 mmhg (35-45); MODE ROOM AIR; Site Right Radial
[2018-02-02 16:34] LABS: CREATINE KINASE 107 IU/L (23-200)
[2018-02-02 16:48] LABS: CK INDEX 1.5; CK-MB 1.59 ng/ml (0.0-2.4); TROPONIN-I 0.019 ng/ml (0.000-0.120)
[2018-02-02] MEDS ORDERED: ATORVASTATIN 10 MG TAB PO (21:00)
[2018-02-02] MEDS: FINASTERIDE 5 MG TAB PO (21:11)
[2018-02-02] MEDS: TAMSULOSIN (SR) 0.4 MG CAP PO (21:11)
[2018-02-02] MEDS: ATORVASTATIN 40 MG TAB PO (21:12)
[2018-02-02] MEDS: DOXAZOSIN 4 MG TAB PO (21:12)
[2018-02-02] MEDS: traZODone 50 MG TAB PO (21:12)
[2018-02-02 23:45] LABS: CK-MB 1.48 ng/ml (0.0-2.4); TROPONIN-I 0.016 ng/ml (0.000-0.120)
[2018-02-02 23:51] LABS: CK INDEX 1.6; CREATINE KINASE 93 IU/L (23-200)
[2018-02-03] MEDS: ALBUTEROL/IPRATROPIUM (NEB) 3 ML AMP HHN ×4 (01:47→20:27)
[2018-02-03] MEDS: ACCU-CHEK XX (02:45)
[2018-02-03] MEDS: FUROSEMIDE 40 MG INJ IV (05:35)
[2018-02-03] MEDS: PANTOPRAZOLE 40 MG INJ IV (05:35)
[2018-02-03 05:47] LABS: ADD MAN DIFF? NO
[2018-02-03 05:51] LABS: WHITE BLOOD COUNT 8.8 10^3/ul (4.8-10.8)
[2018-02-03 05:51] LABS: BASOPHILS % 0.3 % (0.0-2.0); EOSINOPHILS # 0.1 10^3/ul (0.0-0.5); EOSINOPHILS % 0.9 % (0.0-7.0); HEMATOCRIT 32.1 % (42.0-52.0); HEMOGLOBIN 10.3 g/dl (14.0-18.0); LYMPHOCYTES # 1.1 10^3/ul (0.8-2.9); LYMPHOCYTES % 12.3 % (15.0-51.0); MEAN CORPUSCULAR HEMOGLOBIN 27.5 pg (29.0-33.0); MEAN CORPUSCULAR HGB CONC 32.1 g/dl (32.0-37.0); MEAN CORPUSCULAR VOLUME 85.8 fl (82.0-101.0); MEAN PLATELET VOLUME 12.2 fl (7.4-10.4); MONOCYTE # 0.9 10^3/ul (0.3-0.9); NEUTROPHIL # 6.7 10^3/ul (1.6-7.5); NEUTROPHILS % 76.3 % (39.0-77.0); PLATELET COUNT 232 10^3/UL (140-415); RED BLOOD COUNT 3.74 10^6/ul (4.70-6.10); RED CELL DISTRIBUTION WIDTH 14.7 % (11.5-14.5)
[2018-02-03 06:08] LABS: CHOLESTEROL 134 mg/dl (100-200)
[2018-02-03 06:08] LABS: CHOL/HDL RATIO 2.8 RATIO; HDL CHOLESTEROL 47 mg/dl (30-78); LDL CHOLESTEROL,CALCULATED 74 mg/dl; TRIGLYCERIDES 66 mg/dl (0-149)
[2018-02-03] MEDS: LORAZEPAM 1 MG TAB PO ×2 (06:27→19:12)
[2018-02-03 06:29] LABS: ANION GAP 12 (8-16); BLOOD UREA NITROGEN 27 mg/dl (7-20); CALCIUM 9.4 mg/dl (8.4-10.2); CARBON DIOXIDE 32 mmol/L (21-31); CHLORIDE 102 mmol/L (97-110); CREATININE 1.71 mg/dl (0.61-1.24); GLUCOSE 132 mg/dl (70-220); PHOSPHORUS 4.1 mg/dl (2.5-4.9); POTASSIUM 3.6 mmol/L (3.5-5.1); SODIUM 142 mmol/L (135-144)
[2018-02-03] MEDS: LORATADINE 10 MG TAB PO (08:10)
[2018-02-03] MEDS: predniSONE 20 MG TAB PO (08:10)
[2018-02-03] MEDS: DOCUSATE SODIUM 100 MG CAP PO (08:10)
[2018-02-03] MEDS: AMLODIPINE 5 MG TAB PO ×2 (08:10→20:17)
[2018-02-03] MEDS: PAROXETINE 20 MG TAB PO (08:10)
[2018-02-03] MEDS: METOPROLOL (XL) 50 MG TAB PO (08:10)
[2018-02-03] MEDS: FLUTICASONE 0.05% 16 GM NAS SPRAY NASAL (08:11)
[2018-02-03] MEDS: MAGNESIUM HYDROXIDE 30ML CUP PO ×2 (08:11→22:08)
[2018-02-03] MEDS: BENAZEPRIL 10 MG TAB PO (08:11)
[2018-02-03] MEDS: INSULIN ASPART [NOVOLOG] 3 ML PEN SC ×4 (08:21→20:37)
[2018-02-03] MEDS: ENOXAPARIN 30 MG/0.3 ML SYG SC (08:21)
[2018-02-03] MEDS: DOXAZOSIN 4 MG TAB PO (20:16)
[2018-02-03] MEDS: TAMSULOSIN (SR) 0.4 MG CAP PO (20:16)
[2018-02-03] MEDS: METOPROLOL (XL) 25 MG TAB PO (20:17)
[2018-02-03] MEDS: FINASTERIDE 5 MG TAB PO (20:17)
[2018-02-03] MEDS: traZODone 50 MG TAB PO (20:17)
[2018-02-03] MEDS: ATORVASTATIN 40 MG TAB PO (20:17)
[2018-02-04] MEDS: ALBUTEROL/IPRATROPIUM (NEB) 3 ML AMP HHN ×4 (01:28→20:37)
[2018-02-04] MEDS: ACCU-CHEK XX (02:18)
[2018-02-04] MEDS: LORAZEPAM 1 MG TAB PO (05:03)
[2018-02-04] MEDS: PANTOPRAZOLE (EC) 40 MG TAB PO (05:12)
[2018-02-04] MEDS: FUROSEMIDE 40 MG INJ IV (05:13)
[2018-02-04 06:53] LABS: ANION GAP 11 (8-16); BLOOD UREA NITROGEN 28 mg/dl (7-20); CALCIUM 9.2 mg/dl (8.4-10.2); CARBON DIOXIDE 33 mmol/L (21-31); CHLORIDE 99 mmol/L (97-110); CREATININE 1.55 mg/dl (0.61-1.24); GLUCOSE 142 mg/dl (70-220); POTASSIUM 3.8 mmol/L (3.5-5.1); SODIUM 139 mmol/L (135-144)
[2018-02-04] MEDS: INSULIN ASPART [NOVOLOG] 3 ML PEN SC ×4 (08:18→22:23)
[2018-02-04] MEDS: MAGNESIUM HYDROXIDE 30ML CUP PO (09:03)
[2018-02-04] MEDS: PAROXETINE 20 MG TAB PO (09:04)
[2018-02-04] MEDS: LORATADINE 10 MG TAB PO (09:04)
[2018-02-04] MEDS: METOPROLOL (XL) 50 MG TAB PO (09:04)
[2018-02-04] MEDS: predniSONE 20 MG TAB PO (09:04)
[2018-02-04] MEDS: AMLODIPINE 5 MG TAB PO ×2 (09:04→21:29)
[2018-02-04] MEDS: BENAZEPRIL 10 MG TAB PO (09:04)
[2018-02-04] MEDS: DOCUSATE SODIUM 100 MG CAP PO (09:04)
[2018-02-04] MEDS: FLUTICASONE 0.05% 16 GM NAS SPRAY NASAL (09:05)
[2018-02-04] MEDS: ENOXAPARIN 30 MG/0.3 ML SYG SC (09:31)
[2018-02-04] MEDS: ALPRAZOLAM 0.25 MG TAB PO ×2 (13:26→21:27)
[2018-02-04] MEDS ORDERED: traZODone 50 MG TAB PO (21:00)
[2018-02-04] MEDS: traZODone 100 MG TAB PO (21:27)
[2018-02-04] MEDS: FINASTERIDE 5 MG TAB PO (21:28)
[2018-02-04] MEDS: TAMSULOSIN (SR) 0.4 MG CAP PO (21:28)
[2018-02-04] MEDS: DOXAZOSIN 4 MG TAB PO (21:28)
[2018-02-04] MEDS: ATORVASTATIN 40 MG TAB PO (21:28)
[2018-02-04] MEDS: METOPROLOL (XL) 25 MG TAB PO (21:29)
[2018-02-05] MEDS: ALBUTEROL/IPRATROPIUM (NEB) 3 ML AMP HHN ×4 (01:14→20:22)
[2018-02-05] MEDS: ACCU-CHEK XX (02:00)
[2018-02-05 05:29] LABS: ADD MAN DIFF? NO; BASOPHILS % 0.2 % (0.0-2.0); EOSINOPHILS # 0.1 10^3/ul (0.0-0.5); EOSINOPHILS % 1.2 % (0.0-7.0); HEMATOCRIT 30.6 % (42.0-52.0); HEMOGLOBIN 9.9 g/dl (14.0-18.0); LYMPHOCYTES # 1.4 10^3/ul (0.8-2.9); LYMPHOCYTES % 14.5 % (15.0-51.0); MEAN CORPUSCULAR HEMOGLOBIN 28.1 pg (29.0-33.0); MEAN CORPUSCULAR HGB CONC 32.4 g/dl (32.0-37.0); MEAN CORPUSCULAR VOLUME 86.9 fl (82.0-101.0); MEAN PLATELET VOLUME 12.1 fl (7.4-10.4); MONOCYTES % 10.3 % (0.0-11.0); NEUTROPHILS % 73.5 % (39.0-77.0); PLATELET COUNT 225 10^3/UL (140-415); RED BLOOD COUNT 3.52 10^6/ul (4.70-6.10); RED CELL DISTRIBUTION WIDTH 14.7 % (11.5-14.5)
[2018-02-05 05:29] LABS: WHITE BLOOD COUNT 9.5 10^3/ul (4.8-10.8)
[2018-02-05] MEDS: PANTOPRAZOLE (EC) 40 MG TAB PO (05:30)
[2018-02-05] MEDS: FUROSEMIDE 40 MG INJ IV (05:31)
[2018-02-05 06:05] LABS: ANION GAP 10 (8-16); BLOOD UREA NITROGEN 37 mg/dl (7-20); CALCIUM 9.1 mg/dl (8.4-10.2); CARBON DIOXIDE 33 mmol/L (21-31); CHLORIDE 103 mmol/L (97-110); CREATININE 1.59 mg/dl (0.61-1.24); GLUCOSE 96 mg/dl (70-220); POTASSIUM 3.5 mmol/L (3.5-5.1); SODIUM 142 mmol/L (135-144)
[2018-02-05] MEDS: INSULIN ASPART [NOVOLOG] 3 ML PEN SC ×4 (07:55→21:12)
[2018-02-05] MEDS: PAROXETINE 20 MG TAB PO (09:30)
[2018-02-05] MEDS: predniSONE 20 MG TAB PO (09:30)
[2018-02-05] MEDS: DOCUSATE SODIUM 100 MG CAP PO (09:30)
[2018-02-05] MEDS: LORATADINE 10 MG TAB PO (09:30)
[2018-02-05] MEDS: FLUTICASONE 0.05% 16 GM NAS SPRAY NASAL (09:31)
[2018-02-05] MEDS: METOPROLOL (XL) 50 MG TAB PO (09:31)
[2018-02-05] MEDS: AMLODIPINE 5 MG TAB PO ×2 (09:31→20:29)
[2018-02-05] MEDS: BENAZEPRIL 10 MG TAB PO (09:31)
[2018-02-05] MEDS: ALPRAZOLAM 0.25 MG TAB PO ×2 (09:33→20:30)
[2018-02-05] MEDS: ENOXAPARIN 30 MG/0.3 ML SYG SC (09:47)
[2018-02-05] MEDS: LEVOFLOXACIN 500 MG TAB PO (17:48)
[2018-02-05] MEDS: TAMSULOSIN (SR) 0.4 MG CAP PO (20:29)
[2018-02-05] MEDS: ATORVASTATIN 40 MG TAB PO (20:29)
[2018-02-05] MEDS: DOXAZOSIN 4 MG TAB PO (20:30)
[2018-02-05] MEDS: METOPROLOL (XL) 25 MG TAB PO (20:30)
[2018-02-05] MEDS: traZODone 100 MG TAB PO (20:30)
[2018-02-05] MEDS: FINASTERIDE 5 MG TAB PO (20:30)
[2018-02-06] MEDS: ALBUTEROL/IPRATROPIUM (NEB) 3 ML AMP HHN ×3 (01:10→13:45)
[2018-02-06] MEDS: ACCU-CHEK XX (02:00)
[2018-02-06] MEDS: LEVOFLOXACIN 500 MG TAB PO (06:04)
[2018-02-06] MEDS: PANTOPRAZOLE (EC) 40 MG TAB PO (06:04)
[2018-02-06] MEDS: INSULIN ASPART [NOVOLOG] 3 ML PEN SC ×4 (07:49→18:41)
[2018-02-06] MEDS: PAROXETINE 20 MG TAB PO (08:25)
[2018-02-06] MEDS: FLUTICASONE 0.05% 16 GM NAS SPRAY NASAL (08:25)
[2018-02-06] MEDS: DOCUSATE SODIUM 100 MG CAP PO (08:26)
[2018-02-06] MEDS: BENAZEPRIL 10 MG TAB PO (08:26)
[2018-02-06] MEDS: ALPRAZOLAM 0.25 MG TAB PO (08:26)
[2018-02-06] MEDS: predniSONE 20 MG TAB PO (08:26)
[2018-02-06] MEDS: AMLODIPINE 5 MG TAB PO (08:26)
[2018-02-06] MEDS: LORATADINE 10 MG TAB PO (08:26)
[2018-02-06] MEDS: METOPROLOL (XL) 50 MG TAB PO (08:27)
[2018-02-06] MEDS: ENOXAPARIN 30 MG/0.3 ML SYG SC (08:37)
== END 2018-02-06 18:52 | disposition home or self-care (01) | DRG 291 ==
LOC: E/R 05:31 → 6WM 09:01
DX: I13.0 Hypertensive heart and chronic kidney disease with heart failure and stage 1 through stage 4 chronic kidney disease, or unspecified chronic kidney disease (principal); I50.33 Acute on chronic diastolic (congestive) heart failure; J96.00 Acute respiratory failure, unspecified whether with hypoxia or hypercapnia; J44.1 Chronic obstructive pulmonary disease with (acute) exacerbation; N17.9 Acute kidney failure, unspecified; I16.1 Hypertensive emergency; N18.3 Chronic kidney disease, stage 3 (moderate); E11.22 Type 2 diabetes mellitus with diabetic chronic kidney disease; F99 Mental disorder, not otherwise specified; N40.0 Benign prostatic hyperplasia without lower urinary tract symptoms; E66.9 Obesity, unspecified; Z68.33 Body mass index [BMI] 33.0-33.9, adult; E78.5 Hyperlipidemia, unspecified; I25.2 Old myocardial infarction; E78.00 Pure hypercholesterolemia, unspecified; D64.9 Anemia, unspecified
CPT/HCPCS: 36415; 36600; 71045; 80048; 80061; 82550; 82553; 82803; 82962; 83036; 83735; 83880; 84100; 84484; 85025; 87070; 93005; 93306; 94640; 94644; 94660; 94664; 96374; 96375; 99291-25

== ENCOUNTER 2018-10-04 18:50 | Inpatient (IN) | payer OTHER, MEDICAID ==
[2018-10-04 19:02] LABS: ADD MAN DIFF? NO
[2018-10-04 19:04] LABS: WHITE BLOOD COUNT 5.1 10^3/ul (4.8-10.8)
[2018-10-04 19:04] LABS: BASOPHILS % 0.4 % (0.0-2.0); EOSINOPHILS # 0.2 10^3/ul (0.0-0.5); EOSINOPHILS % 4.1 % (0.0-7.0); HEMATOCRIT 31.9 % (42.0-52.0); HEMOGLOBIN 10.1 g/dl (14.0-18.0); LYMPHOCYTES # 0.9 10^3/ul (0.8-2.9); LYMPHOCYTES % 18.2 % (15.0-51.0); MEAN CORPUSCULAR HEMOGLOBIN 27.7 pg (29.0-33.0); MEAN CORPUSCULAR HGB CONC 31.7 g/dl (32.0-37.0); MEAN CORPUSCULAR VOLUME 87.6 fl (82.0-101.0); MONOCYTE # 0.6 10^3/ul (0.3-0.9); NEUTROPHIL # 3.3 10^3/ul (1.6-7.5); NEUTROPHILS % 65.1 % (39.0-77.0); NUCLEATED RED BLOOD CELLS% 0.4 /100WBC (0.0-0.0); PLATELET COUNT 220 10^3/UL (140-415); RED BLOOD COUNT 3.64 10^6/ul (4.70-6.10); RED CELL DISTRIBUTION WIDTH 14.2 % (11.5-14.5)
[2018-10-04 19:17] LABS: HEMOGLOBIN A1C 5.7 % (0-5.9)
[2018-10-04 19:18] LABS: ANION GAP 7 (5-13); BLOOD UREA NITROGEN 13 mg/dl (7-20); CARBON DIOXIDE 31 mmol/L (21-31); CHLORIDE 104 mmol/L (97-110); CHOL/HDL RATIO 3.4 RATIO; CHOLESTEROL 126 mg/dl (100-200); CREATINE KINASE 77 IU/L (23-200); CREATININE 1.29 mg/dl (0.61-1.24); Estimated GFR > 60 mL/min (>60); GLUCOSE 229 mg/dl (70-220); HDL CHOLESTEROL 37 mg/dl (30-78); LDL CHOLESTEROL,CALCULATED 69 mg/dl; POTASSIUM 3.3 mmol/L (3.5-5.1); SODIUM 142 mmol/L (135-144); TRIGLYCERIDES 99 mg/dl (0-149)
[2018-10-04 19:19] LABS: ETHANOL < 10.0 mg/dl (0-0)
[2018-10-04 19:21] LABS: PROTIME 13.3 Sec (11.9-14.9)
[2018-10-04 19:22] LABS: PARTIAL THROMBOPLASTIN TIME 36.2 Sec (23.0-35.0)
[2018-10-04 19:26] LABS: CK INDEX 1.5; CK-MB 1.16 ng/ml (0.0-2.4)
[2018-10-04 19:31] LABS: TROPONIN-I 0.014 ng/ml (0.000-0.120)
[2018-10-04 19:58] LABS: ADD UMIC NO; UR ASCORBIC ACID NEGATIVE (NEGATIVE); UR BILIRUBIN (Dip) NEGATIVE (NEGATIVE); UR BLOOD (Dip) NEGATIVE (NEGATIVE); UR CLARITY CLEAR (CLEAR); UR COLOR STRAW (YELLOW); UR GLUCOSE (Dip) 2+ mg/dL (NEGATIVE); UR KETONES (Dip) NEGATIVE (NEGATIVE); UR LEUKOCYTE ESTERASE (Dip) NEGATIVE Leu/ul (NEGATIVE); UR NITRITE (Dip) NEGATIVE (NEGATIVE); UR SPECIFIC GRAVITY (Dip) 1.029 (1.003-1.030); UR TOTAL PROTEIN (Dip) NEGATIVE (NEGATIVE); UR UROBILINOGEN (Dip) NEGATIVE (NEGATIVE)
[2018-10-04 20:18] LABS: AMPHETAMINE/METHAMPHETAMINE Negative (NEGATIVE); BARBITURATES Negative (NEGATIVE); BENZODIAZEPINES Negative (NEGATIVE); CANNABINOIDS Negative (NEGATIVE); COCAINE Negative (NEGATIVE); OPIATES Negative (NEGATIVE)
[2018-10-04] MEDS ORDERED: NITROGLYCERIN (SL) 0.4 MG TAB SL (22:30)
[2018-10-04] MEDS ORDERED: ACETAMINOPHEN 650 MG SUPP PR (23:00)
[2018-10-04] MEDS ORDERED: ONDANSETRON 4 MG INJ IV (23:00)
[2018-10-04] MEDS ORDERED: NACL 0.9% 3 ML SYG IV (23:00)
[2018-10-04] MEDS ORDERED: DOCUSATE SODIUM 100 MG CAP PO (23:00)
[2018-10-04 23:18] LABS: CREATINE KINASE 71 IU/L (23-200)
[2018-10-04 23:30] LABS: CK INDEX 1.6; CK-MB 1.14 ng/ml (0.0-2.4); TROPONIN-I 0.014 ng/ml (0.000-0.120)
[2018-10-05] MEDS: ALBUTEROL/IPRATROPIUM (NEB) 3 ML AMP INH ×4 (03:52→19:13)
[2018-10-05 05:34] LABS: ADD MAN DIFF? NO
[2018-10-05 05:38] LABS: BASOPHILS % 0.4 % (0.0-2.0); EOSINOPHILS # 0.2 10^3/ul (0.0-0.5); EOSINOPHILS % 4.8 % (0.0-7.0); HEMATOCRIT 32.4 % (42.0-52.0); HEMOGLOBIN 10.2 g/dl (14.0-18.0); LYMPHOCYTES # 0.9 10^3/ul (0.8-2.9); LYMPHOCYTES % 18.3 % (15.0-51.0); MEAN CORPUSCULAR HEMOGLOBIN 27.5 pg (29.0-33.0); MEAN CORPUSCULAR HGB CONC 31.5 g/dl (32.0-37.0); MEAN CORPUSCULAR VOLUME 87.3 fl (82.0-101.0); MEAN PLATELET VOLUME 11.6 fl (7.4-10.4); MONOCYTE # 0.7 10^3/ul (0.3-0.9); MONOCYTES % 13.1 % (0.0-11.0); NEUTROPHIL # 3.1 10^3/ul (1.6-7.5); PLATELET COUNT 212 10^3/UL (140-415); RED BLOOD COUNT 3.71 10^6/ul (4.70-6.10); RED CELL DISTRIBUTION WIDTH 14.3 % (11.5-14.5)
[2018-10-05 05:55] LABS: CREATINE KINASE 66 IU/L (23-200)
[2018-10-05 05:59] LABS: ALANINE AMINOTRANSFERASE 27 IU/L (13-69); ALBUMIN 3.6 g/dl (3.3-4.9); ALBUMIN/GLOBULIN RATIO 1.02; ALKALINE PHOSPHATASE 72 IU/L (42-121); ANION GAP 6 (5-13); ASPARTATE AMINO TRANSFERASE 21 IU/L (15-46); BILIRUBIN,INDIRECT 0.4 mg/dl (0-1.1); BILIRUBIN,TOTAL 0.4 mg/dl (0.2-1.3); BLOOD UREA NITROGEN 13 mg/dl (7-20); CALCIUM 9.2 mg/dl (8.4-10.2); CARBON DIOXIDE 33 mmol/L (21-31); CHLORIDE 107 mmol/L (97-110); CHOL/HDL RATIO 3.4 RATIO; CHOLESTEROL 125 mg/dl (100-200); Estimated GFR > 60 mL/min (>60); GLUCOSE 74 mg/dl (70-220); HDL CHOLESTEROL 36 mg/dl (30-78); LDL CHOLESTEROL,CALCULATED 78 mg/dl; POTASSIUM 3.6 mmol/L (3.5-5.1); SODIUM 146 mmol/L (135-144); TOTAL PROTEIN 7.1 g/dl (6.1-8.1); TRIGLYCERIDES 55 mg/dl (0-149)
[2018-10-05 06:08] LABS: CK INDEX 1.5; TROPONIN-I 0.017 ng/ml (0.000-0.120)
[2018-10-05] MEDS: PANTOPRAZOLE 40 MG INJ IV (06:23)
[2018-10-05] MEDS: D5W-0.45 NACL + KCL 20 MEQ 1,000 ML IV ×2 (06:23→22:34)
[2018-10-05] MEDS: metFORMIN 500 MG TAB PO (09:42)
[2018-10-05] MEDS: ASPIRIN (EC) 81 MG TAB PO (09:44)
[2018-10-05] MEDS: AMLODIPINE 10 MG TAB PO (09:44)
[2018-10-05] MEDS: LORATADINE 10 MG TAB PO (09:45)
[2018-10-05] MEDS: FUROSEMIDE 40 MG TAB PO (09:45)
[2018-10-05] MEDS: GABAPENTIN 300 MG CAP PO ×3 (09:45→20:46)
[2018-10-05] MEDS: BENAZEPRIL 20 MG TAB PO ×2 (09:45→20:46)
[2018-10-05] MEDS: PAROXETINE 20 MG TAB PO (09:45)
[2018-10-05] MEDS: DOCUSATE SODIUM 100 MG CAP PO ×2 (15:03→20:47)
[2018-10-05] MEDS: POLYETHYLENE GLYCOL 17 GM PACKET PO (18:41)
[2018-10-05] MEDS: ACETAMINOPHEN 325 MG TAB PO (18:41)
[2018-10-05] MEDS: TAMSULOSIN (SR) 0.4 MG CAP PO (20:46)
[2018-10-05] MEDS: ATORVASTATIN 10 MG TAB PO (20:46)
[2018-10-05] MEDS: DOXAZOSIN 4 MG TAB PO (20:46)
[2018-10-05] MEDS: traZODone 100 MG TAB PO (22:26)
[2018-10-06] MEDS: ALBUTEROL/IPRATROPIUM (NEB) 3 ML AMP INH ×4 (01:32→19:30)
[2018-10-06] MEDS: LORAZEPAM 1 MG TAB PO (04:16)
[2018-10-06] MEDS: PANTOPRAZOLE (EC) 40 MG TAB PO (06:12)
[2018-10-06 07:12] LABS: ERYTHROCYTE SEDIMENTATION RATE 30 mm/Hr (0-20)
[2018-10-06] MEDS: BISACODYL (EC) 5 MG TAB PO (08:57)
[2018-10-06] MEDS: DOCUSATE SODIUM 100 MG CAP PO ×2 (08:57→21:16)
[2018-10-06] MEDS: BENAZEPRIL 20 MG TAB PO ×2 (08:57→21:17)
[2018-10-06] MEDS: PAROXETINE 20 MG TAB PO (08:57)
[2018-10-06] MEDS: FUROSEMIDE 40 MG TAB PO (08:58)
[2018-10-06] MEDS: ASPIRIN (EC) 81 MG TAB PO (08:58)
[2018-10-06] MEDS: AMLODIPINE 10 MG TAB PO (08:58)
[2018-10-06] MEDS: LORATADINE 10 MG TAB PO (08:58)
[2018-10-06] MEDS: GABAPENTIN 300 MG CAP PO ×3 (08:58→21:18)
[2018-10-06 15:10] LABS: RAPID PLASMA REAGIN NONREACTIVE (NR)
[2018-10-06] MEDS: TAMSULOSIN (SR) 0.4 MG CAP PO (21:16)
[2018-10-06] MEDS: DOXAZOSIN 4 MG TAB PO (21:16)
[2018-10-06] MEDS: ATORVASTATIN 10 MG TAB PO (21:16)
[2018-10-06] MEDS: traZODone 100 MG TAB PO (23:06)
[2018-10-07] MEDS: ALBUTEROL/IPRATROPIUM (NEB) 3 ML AMP INH ×4 (00:50→20:00)
[2018-10-07 05:23] LABS: ADD MAN DIFF? NO
[2018-10-07 05:32] LABS: WHITE BLOOD COUNT 5.7 10^3/ul (4.8-10.8)
[2018-10-07 05:32] LABS: BASOPHILS % 0.5 % (0.0-2.0); EOSINOPHILS # 0.2 10^3/ul (0.0-0.5); EOSINOPHILS % 3.7 % (0.0-7.0); HEMATOCRIT 31.3 % (42.0-52.0); HEMOGLOBIN 10.1 g/dl (14.0-18.0); LYMPHOCYTES # 1.1 10^3/ul (0.8-2.9); LYMPHOCYTES % 19.9 % (15.0-51.0); MEAN CORPUSCULAR HEMOGLOBIN 27.7 pg (29.0-33.0); MEAN CORPUSCULAR HGB CONC 32.3 g/dl (32.0-37.0); MEAN CORPUSCULAR VOLUME 85.8 fl (82.0-101.0); MEAN PLATELET VOLUME 11.6 fl (7.4-10.4); MONOCYTE # 0.6 10^3/ul (0.3-0.9); MONOCYTES % 11.2 % (0.0-11.0); NEUTROPHIL # 3.7 10^3/ul (1.6-7.5); NEUTROPHILS % 64.5 % (39.0-77.0); PLATELET COUNT 206 10^3/UL (140-415); RED BLOOD COUNT 3.65 10^6/ul (4.70-6.10); RED CELL DISTRIBUTION WIDTH 13.9 % (11.5-14.5)
[2018-10-07 05:53] LABS: ANION GAP 8 (5-13); BLOOD UREA NITROGEN 18 mg/dl (7-20); CALCIUM 8.8 mg/dl (8.4-10.2); CARBON DIOXIDE 33 mmol/L (21-31); CHLORIDE 101 mmol/L (97-110); CREATININE 1.63 mg/dl (0.61-1.24); Estimated GFR 52 mL/min (>60); GLUCOSE 105 mg/dl (70-220); SODIUM 142 mmol/L (135-144)
[2018-10-07] MEDS: PANTOPRAZOLE (EC) 40 MG TAB PO (05:56)
[2018-10-07 05:58] LABS: POTASSIUM 3.3 mmol/L (3.5-5.1)
[2018-10-07] MEDS: PAROXETINE 20 MG TAB PO (08:34)
[2018-10-07] MEDS: LORATADINE 10 MG TAB PO (08:34)
[2018-10-07] MEDS: MAGNESIUM HYDROXIDE 30ML CUP PO (08:34)
[2018-10-07] MEDS: ASPIRIN (EC) 81 MG TAB PO (08:34)
[2018-10-07] MEDS: AMLODIPINE 10 MG TAB PO (08:34)
[2018-10-07] MEDS: BENAZEPRIL 20 MG TAB PO ×2 (08:35→21:35)
[2018-10-07] MEDS: DOCUSATE SODIUM 100 MG CAP PO ×2 (08:35→21:33)
[2018-10-07] MEDS: FUROSEMIDE 40 MG TAB PO (08:35)
[2018-10-07] MEDS: GABAPENTIN 300 MG CAP PO ×3 (08:35→21:33)
[2018-10-07] MEDS: POTASSIUM CHLORIDE (SR) 20 MEQ TAB PO ×2 (13:04→15:22)
[2018-10-07] MEDS: ENOXAPARIN 40 MG/0.4 ML SYG SC (14:44)
[2018-10-07 15:34] LABS: ADD UMIC NO; UR ASCORBIC ACID NEGATIVE (NEGATIVE); UR BILIRUBIN (Dip) NEGATIVE (NEGATIVE); UR BLOOD (Dip) NEGATIVE (NEGATIVE); UR CLARITY CLEAR (CLEAR); UR COLOR STRAW (YELLOW); UR GLUCOSE (Dip) NEGATIVE (NEGATIVE); UR KETONES (Dip) NEGATIVE (NEGATIVE); UR LEUKOCYTE ESTERASE (Dip) NEGATIVE Leu/ul (NEGATIVE); UR NITRITE (Dip) NEGATIVE (NEGATIVE); UR SPECIFIC GRAVITY (Dip) 1.008 (1.003-1.030); UR TOTAL PROTEIN (Dip) NEGATIVE (NEGATIVE); UR UROBILINOGEN (Dip) NEGATIVE (NEGATIVE)
[2018-10-07] MEDS: ATORVASTATIN 10 MG TAB PO (21:33)
[2018-10-07] MEDS: DOXAZOSIN 4 MG TAB PO (21:33)
[2018-10-07] MEDS: TAMSULOSIN (SR) 0.4 MG CAP PO (21:33)
[2018-10-07] MEDS: LATANOPROST 0.005% 2.5 ML OPH BOTH EYES (21:38)
[2018-10-07] MEDS: traZODone 100 MG TAB PO (21:42)
[2018-10-08] MEDS: ALBUTEROL/IPRATROPIUM (NEB) 3 ML AMP INH ×3 (02:00→13:39)
[2018-10-08] MEDS: PANTOPRAZOLE (EC) 40 MG TAB PO (05:28)
[2018-10-08 06:13] LABS: ADD MAN DIFF? NO
[2018-10-08 06:22] LABS: WHITE BLOOD COUNT 5.1 10^3/ul (4.8-10.8)
[2018-10-08 06:22] LABS: BASOPHILS % 0.6 % (0.0-2.0); EOSINOPHILS # 0.2 10^3/ul (0.0-0.5); EOSINOPHILS % 4.3 % (0.0-7.0); HEMATOCRIT 30.7 % (42.0-52.0); HEMOGLOBIN 9.9 g/dl (14.0-18.0); LYMPHOCYTES % 18.8 % (15.0-51.0); MEAN CORPUSCULAR HEMOGLOBIN 27.8 pg (29.0-33.0); MEAN CORPUSCULAR HGB CONC 32.2 g/dl (32.0-37.0); MEAN CORPUSCULAR VOLUME 86.2 fl (82.0-101.0); MEAN PLATELET VOLUME 12.3 fl (7.4-10.4); MONOCYTE # 0.6 10^3/ul (0.3-0.9); MONOCYTES % 12.4 % (0.0-11.0); NEUTROPHIL # 3.3 10^3/ul (1.6-7.5); NEUTROPHILS % 63.7 % (39.0-77.0); PLATELET COUNT 201 10^3/UL (140-415); RED BLOOD COUNT 3.56 10^6/ul (4.70-6.10); RED CELL DISTRIBUTION WIDTH 14.1 % (11.5-14.5)
[2018-10-08 06:46] LABS: ANION GAP 6 (5-13); BLOOD UREA NITROGEN 23 mg/dl (7-20); CALCIUM 8.6 mg/dl (8.4-10.2); CARBON DIOXIDE 31 mmol/L (21-31); CHLORIDE 105 mmol/L (97-110); CREATININE 1.48 mg/dl (0.61-1.24); Estimated GFR 58 mL/min (>60); GLUCOSE 134 mg/dl (70-220); POTASSIUM 3.7 mmol/L (3.5-5.1); SODIUM 142 mmol/L (135-144)
[2018-10-08] MEDS: ASPIRIN (EC) 81 MG TAB PO (09:09)
[2018-10-08] MEDS: AMLODIPINE 10 MG TAB PO (09:09)
[2018-10-08] MEDS: FUROSEMIDE 40 MG TAB PO (09:09)
[2018-10-08] MEDS: PAROXETINE 20 MG TAB PO (09:09)
[2018-10-08] MEDS: DOCUSATE SODIUM 100 MG CAP PO (09:09)
[2018-10-08] MEDS: BENAZEPRIL 20 MG TAB PO (09:09)
[2018-10-08] MEDS: GABAPENTIN 300 MG CAP PO ×2 (09:09→12:07)
[2018-10-08] MEDS: LORATADINE 10 MG TAB PO (09:11)
[2018-10-08] MEDS: ENOXAPARIN 40 MG/0.4 ML SYG SC (09:11)
== END 2018-10-08 14:48 | disposition home health service (06) | DRG 69 ==
LOC: E/R 18:50 → 6WM 20:19
DX: G45.9 Transient cerebral ischemic attack, unspecified (principal); I69.351 Hemiplegia and hemiparesis following cerebral infarction affecting right dominant side; I13.0 Hypertensive heart and chronic kidney disease with heart failure and stage 1 through stage 4 chronic kidney disease, or unspecified chronic kidney disease; E87.0 Hyperosmolality and hypernatremia; D63.1 Anemia in chronic kidney disease; E78.5 Hyperlipidemia, unspecified; E11.22 Type 2 diabetes mellitus with diabetic chronic kidney disease; E66.9 Obesity, unspecified; F41.9 Anxiety disorder, unspecified; I50.9 Heart failure, unspecified; J44.9 Chronic obstructive pulmonary disease, unspecified; N18.3 Chronic kidney disease, stage 3 (moderate); R29.712 NIHSS score 12; R47.1 Dysarthria and anarthria; R20.0 Anesthesia of skin; Z79.84 Long term (current) use of oral hypoglycemic drugs; Z68.31 Body mass index [BMI] 31.0-31.9, adult
CPT/HCPCS: 36415; 70450; 70496; 70498; 70551; 71045; 80048; 80053; 80061; 80307; 81003; 82550; 82553; 82962; 83036; 84484; 85025; 85610; 85651; 85730; 86592; 92610; 93005; 93306; 94640; 94660; 97116; 97161; 97167; 97530; 99285-25

== ENCOUNTER 2018-11-28 06:26 | Day surgery (SDC) | payer OTHER ==
[2018-11-28] MEDS ORDERED: SOD CHLORIDE 0.9% 1,000 ML IV (07:00)
[2018-11-28 07:27] LABS: ADD MAN DIFF? NO
[2018-11-28 07:29] LABS: BASOPHILS % 0.5 % (0.0-2.0); EOSINOPHILS # 0.2 10^3/ul (0.0-0.5); EOSINOPHILS % 4.2 % (0.0-7.0); HEMATOCRIT 32.5 % (42.0-52.0); HEMOGLOBIN 10.5 g/dl (14.0-18.0); LYMPHOCYTES # 0.9 10^3/ul (0.8-2.9); MEAN CORPUSCULAR HEMOGLOBIN 27.7 pg (29.0-33.0); MEAN CORPUSCULAR HGB CONC 32.3 g/dl (32.0-37.0); MEAN CORPUSCULAR VOLUME 85.8 fl (82.0-101.0); MEAN PLATELET VOLUME 11.6 fl (7.4-10.4); MONOCYTE # 0.5 10^3/ul (0.3-0.9); MONOCYTES % 9.3 % (0.0-11.0); NEUTROPHIL # 3.8 10^3/ul (1.6-7.5); NEUTROPHILS % 68.8 % (39.0-77.0); PLATELET COUNT 210 10^3/UL (140-415); RED BLOOD COUNT 3.79 10^6/ul (4.70-6.10); RED CELL DISTRIBUTION WIDTH 14.5 % (11.5-14.5)
[2018-11-28 07:29] LABS: WHITE BLOOD COUNT 5.5 10^3/ul (4.8-10.8)
[2018-11-28 07:49] LABS: ALANINE AMINOTRANSFERASE 27 IU/L (13-69); ALBUMIN 4.1 g/dl (3.3-4.9); ALKALINE PHOSPHATASE 82 IU/L (42-121); ANION GAP 7 (5-13); ASPARTATE AMINO TRANSFERASE 22 IU/L (15-46); BILIRUBIN,INDIRECT 0.7 mg/dl (0-1.1); BILIRUBIN,TOTAL 0.7 mg/dl (0.2-1.3); BLOOD UREA NITROGEN 14 mg/dl (7-20); CALCIUM 9.2 mg/dl (8.4-10.2); CARBON DIOXIDE 34 mmol/L (21-31); CHLORIDE 103 mmol/L (97-110); Estimated GFR 57 mL/min (>60); GLUCOSE 165 mg/dl (70-220); POTASSIUM 3.8 mmol/L (3.5-5.1); SODIUM 144 mmol/L (135-144); TOTAL PROTEIN 7.7 g/dl (6.1-8.1)
[2018-11-28 07:50] LABS: INR 1.01; PROTIME 13.4 Sec (11.9-14.9)
[2018-11-28 07:54] LABS: ALBUMIN/GLOBULIN RATIO 1.13; CREATININE 1.49 mg/dl (0.61-1.24)
[2018-11-28 07:58] LABS: PARTIAL THROMBOPLASTIN TIME 39.2 Sec (23.0-35.0)
== END 2018-11-28 08:10 | disposition home or self-care (01) ==
LOC: SDS 06:26
DX: I73.9 Peripheral vascular disease, unspecified (principal); Z53.9 Procedure and treatment not carried out, unspecified reason; I10 Essential (primary) hypertension; E11.9 Type 2 diabetes mellitus without complications; E78.5 Hyperlipidemia, unspecified; Z86.73 Personal history of transient ischemic attack (TIA), and cerebral infarction without residual deficits
CPT/HCPCS: 80053; 82962; 85025; 85610; 85730

== ENCOUNTER 2018-12-07 08:56 | Day surgery (SDC) | payer OTHER ==
[2018-12-07 10:15] LABS: ADD MAN DIFF? NO
[2018-12-07 10:17] LABS: BASOPHILS % 0.6 % (0.0-2.0); EOSINOPHILS # 0.2 10^3/ul (0.0-0.5); HEMATOCRIT 31.8 % (42.0-52.0); HEMOGLOBIN 10.3 g/dl (14.0-18.0); LYMPHOCYTES % 18.5 % (15.0-51.0); MEAN CORPUSCULAR HEMOGLOBIN 27.5 pg (29.0-33.0); MEAN CORPUSCULAR HGB CONC 32.4 g/dl (32.0-37.0); MEAN PLATELET VOLUME 11.4 fl (7.4-10.4); MONOCYTE # 0.6 10^3/ul (0.3-0.9); MONOCYTES % 12.1 % (0.0-11.0); NEUTROPHIL # 3.4 10^3/ul (1.6-7.5); NEUTROPHILS % 64.6 % (39.0-77.0); PLATELET COUNT 224 10^3/UL (140-415); RED BLOOD COUNT 3.74 10^6/ul (4.70-6.10); RED CELL DISTRIBUTION WIDTH 14.4 % (11.5-14.5)
[2018-12-07 10:17] LABS: WHITE BLOOD COUNT 5.3 10^3/ul (4.8-10.8)
[2018-12-07] MEDS ORDERED: SOD CHLORIDE 0.9% 1,000 ML IV ×2 (10:30→13:32)
[2018-12-07 10:36] LABS: ALANINE AMINOTRANSFERASE 21 IU/L (13-69); ALBUMIN 4.3 g/dl (3.3-4.9); ALBUMIN/GLOBULIN RATIO 1.13; ALKALINE PHOSPHATASE 73 IU/L (42-121); ANION GAP 8 (5-13); ASPARTATE AMINO TRANSFERASE 43 IU/L (15-46); BILIRUBIN,INDIRECT 0.7 mg/dl (0-1.1); BILIRUBIN,TOTAL 0.7 mg/dl (0.2-1.3); BLOOD UREA NITROGEN 16 mg/dl (7-20); CALCIUM 9.4 mg/dl (8.4-10.2); CARBON DIOXIDE 28 mmol/L (21-31); CHLORIDE 107 mmol/L (97-110); Estimated GFR > 60 mL/min (>60); GLUCOSE 135 mg/dl (70-220); POTASSIUM 4.3 mmol/L (3.5-5.1); SODIUM 143 mmol/L (135-144); TOTAL PROTEIN 8.1 g/dl (6.1-8.1)
[2018-12-07 10:37] LABS: INR 1.01; PROTIME 13.4 Sec (11.9-14.9)
[2018-12-07 10:52] LABS: CREATININE 1.34 mg/dl (0.61-1.24)
[2018-12-07 10:57] LABS: PARTIAL THROMBOPLASTIN TIME 22.3 Sec (23.0-35.0)
[2018-12-07] MEDS ORDERED: IODIXANOL LOCM 100 ML BTL ×2 (12:06→12:07)
[2018-12-07] MEDS ORDERED: HEPARIN 1000 UNITS/ML 10 ML INJ (12:06)
[2018-12-07] MEDS ORDERED: LIDOCAINE 1% (MDV) 20 ML INJ (12:06)
[2018-12-07] MEDS ORDERED: MIDAZOLAM 1 MG/ML 2 ML INJ (12:07)
[2018-12-07] MEDS ORDERED: SOD CHLORIDE 0.9% 500 ML (12:07)
[2018-12-07] MEDS ORDERED: FENTAnyl 50 MCG/ML VIAL (12:07)
[2018-12-07] MEDS ORDERED: AL HYDROX/MG HYDROX/SIMETH 30 ML CUP PO (14:00)
[2018-12-07] MEDS ORDERED: ONDANSETRON 4 MG INJ IV (14:00)
[2018-12-07] MEDS ORDERED: ACETAMINOPHEN 325 MG TAB PO (14:00)
[2018-12-07] MEDS: AMLODIPINE 10 MG TAB PO (16:45)
== END 2018-12-07 18:30 | disposition home or self-care (01) ==
LOC: SDS 08:56
DX: I73.9 Peripheral vascular disease, unspecified (principal); E11.9 Type 2 diabetes mellitus without complications
CPT/HCPCS: 36246; 75630; 80053; 82962; 85025; 85610; 85730

== ENCOUNTER 2018-12-08 09:13 | Emergency (ER) | payer OTHER | END 2018-12-08 10:58 | disposition home or self-care (01) | LOC: FTE 09:13 | DX: S62.393A Other fracture of third metacarpal bone, left hand, initial encounter for closed fracture (principal); I11.0 Hypertensive heart disease with heart failure; I50.9 Heart failure, unspecified; J44.9 Chronic obstructive pulmonary disease, unspecified; W18.30XA Fall on same level, unspecified, initial encounter; Y92.9 Unspecified place or not applicable; Z79.82 Long term (current) use of aspirin; Z86.73 Personal history of transient ischemic attack (TIA), and cerebral infarction without residual deficits | CPT/HCPCS: 29125; 73110-LT; 73130-LT; 99283-25 ==

== ENCOUNTER 2019-01-26 14:18 | Inpatient (IN) | payer OTHER ==
[2019-01-26 15:35] LABS: ADD MAN DIFF? NO
[2019-01-26 15:41] LABS: WHITE BLOOD COUNT 7.3 10^3/ul (4.8-10.8)
[2019-01-26 15:41] LABS: ABNORMAL IP MESSAGE 1; BASOPHILS % 0.1 % (0.0-2.0); EOSINOPHILS % 0.1 % (0.0-7.0); HEMATOCRIT 35.4 % (42.0-52.0); HEMOGLOBIN 11.5 g/dl (14.0-18.0); LYMPHOCYTES # 0.5 10^3/ul (0.8-2.9); LYMPHOCYTES % 6.2 % (15.0-51.0); MEAN CORPUSCULAR HEMOGLOBIN 28.3 pg (29.0-33.0); MEAN CORPUSCULAR HGB CONC 32.5 g/dl (32.0-37.0); MEAN PLATELET VOLUME 12.1 fl (7.4-10.4); MONOCYTE # 0.4 10^3/ul (0.3-0.9); MONOCYTES % 5.2 % (0.0-11.0); NEUTROPHIL # 6.4 10^3/ul (1.6-7.5); PLATELET COUNT 212 10^3/UL (140-415); POSITIVE DIFF @See below; RED BLOOD COUNT 4.07 10^6/ul (4.70-6.10); RED CELL DISTRIBUTION WIDTH 15.3 % (11.5-14.5)
[2019-01-26 16:00] LABS: ALANINE AMINOTRANSFERASE 23 IU/L (13-69); ALBUMIN 3.4 g/dl (3.3-4.9); ALBUMIN/GLOBULIN RATIO 1.25; ALKALINE PHOSPHATASE 65 IU/L (42-121); ANION GAP 7 (5-13); ASPARTATE AMINO TRANSFERASE 15 IU/L (15-46); BILIRUBIN,INDIRECT 0.7 mg/dl (0-1.1); BILIRUBIN,TOTAL 0.7 mg/dl (0.2-1.3); BLOOD UREA NITROGEN 33 mg/dl (7-20); CALCIUM 9.2 mg/dl (8.4-10.2); CARBON DIOXIDE 28 mmol/L (21-31); CHLORIDE 99 mmol/L (97-110); CREATININE 1.87 mg/dl (0.61-1.24); Estimated GFR 44 mL/min (>60); POTASSIUM 3.9 mmol/L (3.5-5.1); SODIUM 134 mmol/L (135-144); TOTAL PROTEIN 6.1 g/dl (6.1-8.1)
[2019-01-26] MEDS: ONDANSETRON 4 MG INJ IV (16:01)
[2019-01-26] MEDS: ASPIRIN 325 MG TAB PO (16:01)
[2019-01-26 16:02] LABS: INR 1.05; PROTIME 13.8 Sec (11.9-14.9); PT RATIO 1.1
[2019-01-26] MEDS: morphine 4 MG/ML VIAL IV (16:02)
[2019-01-26 16:03] LABS: PARTIAL THROMBOPLASTIN TIME 29.7 Sec (23.0-35.0)
[2019-01-26 16:04] LABS: GLUCOSE 468 mg/dl (70-220)
[2019-01-26] MEDS: NITROGLYCERIN 2% 1 GM OINT PKT TD (16:08)
[2019-01-26 16:11] LABS: TROPONIN-I 0.037 ng/ml (0.000-0.120)
[2019-01-26] MEDS: INSULIN LISPRO 100 UNIT/ML VIAL SC (16:52)
[2019-01-26] MEDS ORDERED: ACETAMINOPHEN 325 MG TAB PO (17:30)
[2019-01-26] MEDS ORDERED: ONDANSETRON 4 MG INJ IV (17:30)
[2019-01-26] MEDS: ACCU-CHEK XX (18:30)
[2019-01-26] MEDS ORDERED: LORATADINE 10 MG TAB PO (23:00)
[2019-01-26] MEDS ORDERED: NITROGLYCERIN (SL) 0.4 MG TAB SL (23:00)
[2019-01-27] MEDS: INSULIN ASPART [NOVOLOG] 3 ML PEN SC ×4 (07:55→20:06)
[2019-01-27] MEDS: BENAZEPRIL 20 MG TAB PO (08:22)
[2019-01-27 08:30] LABS: ADD MAN DIFF? NO
[2019-01-27 08:34] LABS: WHITE BLOOD COUNT 6.8 10^3/ul (4.8-10.8)
[2019-01-27 08:34] LABS: BASOPHILS % 0.1 % (0.0-2.0); EOSINOPHILS # 0.1 10^3/ul (0.0-0.5); EOSINOPHILS % 2.1 % (0.0-7.0); HEMATOCRIT 36.7 % (42.0-52.0); HEMOGLOBIN 11.5 g/dl (14.0-18.0); LYMPHOCYTES # 1.4 10^3/ul (0.8-2.9); LYMPHOCYTES % 21.2 % (15.0-51.0); MEAN CORPUSCULAR HEMOGLOBIN 27.5 pg (29.0-33.0); MEAN CORPUSCULAR HGB CONC 31.3 g/dl (32.0-37.0); MEAN CORPUSCULAR VOLUME 87.8 fl (82.0-101.0); MEAN PLATELET VOLUME 12.2 fl (7.4-10.4); MONOCYTE # 0.7 10^3/ul (0.3-0.9); MONOCYTES % 9.7 % (0.0-11.0); NEUTROPHIL # 4.5 10^3/ul (1.6-7.5); NEUTROPHILS % 66.6 % (39.0-77.0); PLATELET COUNT 187 10^3/UL (140-415); RED BLOOD COUNT 4.18 10^6/ul (4.70-6.10); RED CELL DISTRIBUTION WIDTH 15.5 % (11.5-14.5)
[2019-01-27 09:30] LABS: ANION GAP 3 (5-13); BLOOD UREA NITROGEN 30 mg/dl (7-20); CALCIUM 9.4 mg/dl (8.4-10.2); CARBON DIOXIDE 33 mmol/L (21-31); CHLORIDE 102 mmol/L (97-110); CREATININE 1.61 mg/dl (0.61-1.24); Estimated GFR 52 mL/min (>60); GLUCOSE 110 mg/dl (70-220); POTASSIUM 3.7 mmol/L (3.5-5.1); SODIUM 138 mmol/L (135-144)
[2019-01-27 09:34] LABS: TROPONIN-I 0.048 ng/ml (0.000-0.120)
[2019-01-27] MEDS: AMLODIPINE 10 MG TAB PO (09:46)
[2019-01-27] MEDS: GABAPENTIN 300 MG CAP PO ×3 (09:46→20:05)
[2019-01-27] MEDS: ASPIRIN 81 MG TAB PO (09:47)
[2019-01-27] MEDS: FUROSEMIDE 40 MG TAB PO (09:47)
[2019-01-27] MEDS: PAROXETINE 20 MG TAB PO (09:48)
[2019-01-27] MEDS ORDERED: DEXTROSE 50% 50 ML SYRINGE IV ×2 (12:30)
[2019-01-27] MEDS ORDERED: GLUCAGON 1 MG INJ IM (12:30)
[2019-01-27] MEDS ORDERED: GLUCOSE GEL 15 GRAM TUBE BUCCAL (12:30)
[2019-01-27] MEDS ORDERED: GLUCOSE GEL 15 GRAM TUBE PO ×2 (12:30)
[2019-01-27] MEDS: ENOXAPARIN 40 MG/0.4 ML SYG SC (12:35)
[2019-01-27] MEDS: LINAGLIPTIN 5 MG TABLET PO (12:42)
[2019-01-27] MEDS: DOXAZOSIN 4 MG TAB PO (20:05)
[2019-01-27] MEDS: TAMSULOSIN (SR) 0.4 MG CAP PO (20:05)
[2019-01-27] MEDS: ATORVASTATIN 10 MG TAB PO (20:05)
[2019-01-27] MEDS: LATANOPROST 0.005% 2.5 ML OPH BOTH EYES (20:11)
[2019-01-27] MEDS: traZODone 100 MG TAB PO (22:19)
[2019-01-28 07:49] LABS: ADD MAN DIFF? NO
[2019-01-28 07:53] LABS: WHITE BLOOD COUNT 5.9 10^3/ul (4.8-10.8)
[2019-01-28 07:54] LABS: BASOPHILS % 0.3 % (0.0-2.0); EOSINOPHILS # 0.2 10^3/ul (0.0-0.5); EOSINOPHILS % 2.7 % (0.0-7.0); HEMOGLOBIN 11.3 g/dl (14.0-18.0); LYMPHOCYTES # 1.1 10^3/ul (0.8-2.9); LYMPHOCYTES % 18.5 % (15.0-51.0); MEAN CORPUSCULAR HEMOGLOBIN 27.6 pg (29.0-33.0); MEAN CORPUSCULAR HGB CONC 31.4 g/dl (32.0-37.0); MEAN CORPUSCULAR VOLUME 87.8 fl (82.0-101.0); MEAN PLATELET VOLUME 11.5 fl (7.4-10.4); MONOCYTE # 0.7 10^3/ul (0.3-0.9); MONOCYTES % 11.1 % (0.0-11.0); NEUTROPHIL # 3.9 10^3/ul (1.6-7.5); NEUTROPHILS % 67.1 % (39.0-77.0); PLATELET COUNT 179 10^3/UL (140-415); RED CELL DISTRIBUTION WIDTH 15.4 % (11.5-14.5)
[2019-01-28] MEDS: INSULIN ASPART [NOVOLOG] 3 ML PEN SC ×4 (07:55→20:32)
[2019-01-28 08:22] LABS: IRON 64 ug/dl (35-150)
[2019-01-28 08:26] LABS: HEMOGLOBIN A1C 9.1 % (0-5.9)
[2019-01-28 08:27] LABS: URIC ACID 5.8 mg/dl (3.1-7.9)
[2019-01-28 08:28] LABS: ANION GAP 2 (5-13); BLOOD UREA NITROGEN 30 mg/dl (7-20); CALCIUM 9.1 mg/dl (8.4-10.2); CARBON DIOXIDE 34 mmol/L (21-31); CHLORIDE 101 mmol/L (97-110); CREATININE 1.78 mg/dl (0.61-1.24); Estimated GFR 47 mL/min (>60); GLUCOSE 88 mg/dl (70-220); POTASSIUM 3.6 mmol/L (3.5-5.1); SODIUM 137 mmol/L (135-144)
[2019-01-28 08:31] LABS: % IRON SATURATION 25 % SAT (22-52); TOTAL IRON BINDING CAPACITY 254 ug/dl (241-421)
[2019-01-28] MEDS: ASPIRIN 81 MG TAB PO (08:50)
[2019-01-28] MEDS: LINAGLIPTIN 5 MG TABLET PO (08:50)
[2019-01-28] MEDS: PAROXETINE 20 MG TAB PO (08:50)
[2019-01-28] MEDS: GABAPENTIN 300 MG CAP PO ×3 (08:50→20:25)
[2019-01-28] MEDS: FUROSEMIDE 40 MG TAB PO (08:50)
[2019-01-28] MEDS: AMLODIPINE 10 MG TAB PO (08:51)
[2019-01-28] MEDS: ENOXAPARIN 40 MG/0.4 ML SYG SC (08:55)
[2019-01-28] MEDS ORDERED: DOCUSATE SODIUM 250 MG CAP PO (12:00)
[2019-01-28] MEDS: POLYETHYLENE GLYCOL 17 GM PACKET PO (13:26)
[2019-01-28] MEDS: ATORVASTATIN 10 MG TAB PO (20:25)
[2019-01-28] MEDS: DOXAZOSIN 4 MG TAB PO (20:26)
[2019-01-28] MEDS: TAMSULOSIN (SR) 0.4 MG CAP PO (20:26)
[2019-01-28] MEDS: MAGNESIUM CHLORIDE (SR) 64 MG TAB PO (20:26)
[2019-01-28] MEDS: LATANOPROST 0.005% 2.5 ML OPH BOTH EYES (20:36)
[2019-01-28] MEDS: traZODone 100 MG TAB PO (22:41)
[2019-01-29 07:34] LABS: ADD MAN DIFF? NO
[2019-01-29 07:43] LABS: BASOPHILS % 0.2 % (0.0-2.0); EOSINOPHILS # 0.1 10^3/ul (0.0-0.5); EOSINOPHILS % 2.6 % (0.0-7.0); HEMATOCRIT 36.4 % (42.0-52.0); HEMOGLOBIN 11.6 g/dl (14.0-18.0); LYMPHOCYTES % 20.9 % (15.0-51.0); MEAN CORPUSCULAR HGB CONC 31.9 g/dl (32.0-37.0); MEAN CORPUSCULAR VOLUME 87.9 fl (82.0-101.0); MEAN PLATELET VOLUME 12.5 fl (7.4-10.4); MONOCYTE # 0.5 10^3/ul (0.3-0.9); MONOCYTES % 10.1 % (0.0-11.0); NEUTROPHILS % 65.6 % (39.0-77.0); PLATELET COUNT 187 10^3/UL (140-415); RED BLOOD COUNT 4.14 10^6/ul (4.70-6.10); RED CELL DISTRIBUTION WIDTH 15.2 % (11.5-14.5)
[2019-01-29 07:43] LABS: WHITE BLOOD COUNT 4.6 10^3/ul (4.8-10.8)
[2019-01-29 08:10] LABS: MAGNESIUM 1.9 mg/dl (1.7-2.5)
[2019-01-29] MEDS: INSULIN ASPART [NOVOLOG] 3 ML PEN SC ×2 (08:15→12:11)
[2019-01-29 08:17] LABS: ANION GAP 2 (5-13); BLOOD UREA NITROGEN 30 mg/dl (7-20); CALCIUM 9.1 mg/dl (8.4-10.2); CARBON DIOXIDE 35 mmol/L (21-31); CHLORIDE 100 mmol/L (97-110); CREATININE 1.66 mg/dl (0.61-1.24); Estimated GFR 51 mL/min (>60); GLUCOSE 120 mg/dl (70-220); POTASSIUM 3.6 mmol/L (3.5-5.1); SODIUM 137 mmol/L (135-144)
[2019-01-29] MEDS: ASPIRIN 81 MG TAB PO (08:57)
[2019-01-29] MEDS: FUROSEMIDE 40 MG TAB PO (08:57)
[2019-01-29] MEDS: PAROXETINE 20 MG TAB PO (08:57)
[2019-01-29] MEDS: GABAPENTIN 300 MG CAP PO ×2 (08:57→13:14)
[2019-01-29] MEDS: MAGNESIUM CHLORIDE (SR) 64 MG TAB PO (08:58)
[2019-01-29] MEDS: AMLODIPINE 10 MG TAB PO (08:58)
[2019-01-29] MEDS: LINAGLIPTIN 5 MG TABLET PO (08:58)
[2019-01-29] MEDS: ENOXAPARIN 40 MG/0.4 ML SYG SC (09:05)
== END 2019-01-29 15:12 | disposition home or self-care (01) | DRG 313 ==
LOC: E/R 14:18 → TEL 17:13
PROVIDERS: Internal Medicine Nephrology
DX: R07.2 Precordial pain (principal); I50.33 Acute on chronic diastolic (congestive) heart failure; I13.0 Hypertensive heart and chronic kidney disease with heart failure and stage 1 through stage 4 chronic kidney disease, or unspecified chronic kidney disease; E11.65 Type 2 diabetes mellitus with hyperglycemia; E78.5 Hyperlipidemia, unspecified; J44.9 Chronic obstructive pulmonary disease, unspecified; E11.22 Type 2 diabetes mellitus with diabetic chronic kidney disease; N18.3 Chronic kidney disease, stage 3 (moderate); N40.0 Benign prostatic hyperplasia without lower urinary tract symptoms; G47.33 Obstructive sleep apnea (adult) (pediatric); D64.9 Anemia, unspecified; Z79.4 Long term (current) use of insulin; Z79.82 Long term (current) use of aspirin; Z98.61 Coronary angioplasty status; Z87.891 Personal history of nicotine dependence; Z86.73 Personal history of transient ischemic attack (TIA), and cerebral infarction without residual deficits
CPT/HCPCS: 71045; 80048; 80053; 82962; 83036; 83540; 83735; 84484; 84560; 85025; 85610; 85730; 93005; 94660; 96372; 96374; 96375; 99217; 99285-25; G0378